=== PATIENT | female | born 1995 | race Caucasian/White ===

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

== ENCOUNTER → 2017-04-23 | Outpatient (CLI) | payer OTHER, BC | END | disposition home or self-care (01) | LOC: RADECHMAIN 12:44 | PROVIDERS: ATTEND Internal Medicine | DX: R00.0 Tachycardia, unspecified (principal); R55 Syncope and collapse | CPT/HCPCS: 93270; 93271 ==

== ENCOUNTER 2017-04-24 17:08 | Emergency (ER) | payer OTHER, BC ==
[2017-04-24] MEDS ORDERED: DICYCLOMINE 10 MG/ML 2 ML AMP IM STA (18:20)
[2017-04-24] MEDS ORDERED: SODIUM CHLORIDE 0.9% 1,000 ML IV STA (18:20)
[2017-04-24] MEDS ORDERED: ONDANSETRON 4 MG/2 ML VIAL IVP STA (18:20)
[2017-04-24] MEDS ORDERED: FAMOTIDINE 20 MG/2 ML VIAL IV STA (18:21)
--- NOTE | 2017-04-24 18:23 | ED ---
Nausea/Vomiting/Diarrhea HPI - General Chief complaint: Nausea/Vomiting/Diarrhea Stated complaint: generalized sickness Time Seen by Provider: 04/24/17 18:11 Source: patient, RN notes reviewed Mode of arrival: ambulatory Limitations: no limitations - History of Present Illness Initial comments: 22-year-old female presents to the emergency department with a chief complaint of nausea vomiting and diarrhea. Patient states that the last 2-3 days. Patient states she's had multiple episodes of vomiting and diarrhea. Patient states she'll get a crampy pain in her abdomen prior to the diarrhea. Patient states that this time she has no pain. Patient denies any fever or chills with this. Patient denies any surgical history. Patient states that it just seems to be consistent and is not worsening at this time but due to the continued symptoms she was concerned. Patient denies any recent fever, chills, shortness of breath, chest pain, back pain, abdominal pain, nausea vomiting, numbness or tingling, dysuria or hematuria, constipation or diarrhea, headaches or visual changes, or any other current symptoms. - Related Data Home Medications Medication Instructions Recorded Confirmed FLUoxetine HCL [PROzac] 10 mg PO HS 11/14/15 04/24/17 cloNIDine HCL [Catapres] 0.2 mg PO HS 11/14/15 04/24/17 Tri-Estarylla 1 tab PO HS 12/02/16 04/24/17 Multivitamins, Thera [Multivitamin 1 tab PO DAILY 04/24/17 04/24/17 (formulary)] Previous Rx's Medication Instructions Recorded Dicyclomine [Bentyl] 10 mg PO TID #20 capsule 04/24/17 Ondansetron Odt [Zofran ODT] 4 mg PO Q8HR PRN #20 tab 04/24/17 Allergies Allergy/AdvReac Type Severity Reaction Status Date / Time azithromycin [From Zithromax] Allergy Rash/Hives Verified 04/24/17 19:01 Review of Systems ROS Statement: Those systems with pertinent positive or pertinent negative responses have been documented in the HPI. ROS Other: All systems not noted in ROS Statement are negative. Past Medical History Additional Past Medical History / Comment(s): migraines, bulemia History of Any Multi-Drug Resistant Organisms: None Reported Past Surgical History: Ear Surgery Additional Past Surgical History / Comment(s): Ganglion impar block Past Psychological History: Anxiety, Depression Smoking Status: Current every day smoker Past Alcohol Use History: None Reported Past Drug Use History: None Reported General Exam - General Exam Comments Initial Comments: General: The patient is awake and alert, in no distress, and does not appear acutely ill. Eye: Pupils are equal, round and reactive to light, extra-ocular movements are intact; there is normal conjunctiva bilaterally. No signs of icterus. Ears, nose, mouth and throat: There are moist mucous membranes and no oral lesions. Neck: The neck is supple, there is no tenderness. Cardiovascular: There is a regular rate and rhythm. No murmur, rub or gallop is appreciated. Respiratory: Lungs are clear to auscultation, respirations are non-labored, breath sounds are equal. No wheezes, stridor, rales, or rhonchi. Gastrointestinal: Soft, non-distended, non-tender abdomen without masses or organomegaly noted. There is no rebound or guarding present. No CVA tenderness. Bowel sounds are unremarkable. Back: There is no tenderness to palpation in the midline. There is no obvious deformity. No rashes noted. Musculoskeletal: Normal ROM, no tenderness, There is no pedal edema. There is no calf tenderness or swelling. Sensation intact. Pulses equal bilaterally 2+. Neurological: CN II-XII intact, There are no obvious motor or sensory deficits. Coordination appears grossly intact. Speech is normal. Skin: Skin is warm and dry and no rashes or lesions are noted. Psychiatric: Cooperative, appropriate mood & affect, normal judgment. Limitations: no limitations Course Vital Signs 04/24/17 17:26 Temperature 98.1 F Pulse Rate 86 Respiratory 20 Rate Blood Pressure 111/68 O2 Sat by Pulse 98 Oximetry Medical Decision Making - Medical Decision Making 22-year-old female presents emergency Department with a chief complaint of nausea vomiting and diarrhea. This was reviewed as well as x-ray. At this time patient's abdomen continues to be soft and nontender. She has had no pain here. When receiving the IV the patient did vasovagal in the room this was witnessed she did here was going on she just was out she came to she was CONFUSED. AT THIS TIME WE DID DISCUSS OTHER ETIOLOGIES FOR THIS. We did discuss when to return the emergency department. We did discuss appropriate follow-up and all questions. Patient family stated they understood and they're in agreement with plan. They will be discharged. - Lab Data Result diagrams: 04/24/17 19:25 04/24/17 19:25 Lab Results 04/24/17 04/24/17 04/24/17 Range/Units 19:25 19:25 19:25 WBC 6.2 (4.0-11.0) k/uL RBC 4.76 (3.80-5.40) m/uL Hgb 13.8 (11.4-16.0) gm/dL Hct 40.3 (34.0-46.0) % MCV 84.7 (80.0-100.0) fL MCH 28.9 (25.0-35.0) pg MCHC 34.2 (31.0-37.0) g/dL RDW 13.5 (11.5-15.5) % Plt Count 345 (150-450) k/uL Neutrophils % 50 % Lymphocytes % 36 % Monocytes % 7 % Eosinophils % 4 % Basophils % 1 % Neutrophils # 3.1 (1.3-7.7) k/uL Lymphocytes # 2.2 (1.0-4.8) k/uL Monocytes # 0.5 (0-1.0) k/uL Eosinophils # 0.2 (0-0.7) k/uL Basophils # 0.1 (0-0.2) k/uL Sodium 142 (137-145) mmol/L Potassium 4.0 (3.5-5.1) mmol/L Chloride 105 (98-107) mmol/L Carbon Dioxide 27 (22-30) mmol/L Anion Gap 10 mmol/L BUN 10 (7-17) mg/dL Creatinine 0.60 (0.52-1.04) mg/dL Est GFR (MDRD) Af Amer >60 (>60 ml/min/1.73 sqM) Est GFR (MDRD) Non-Af >60 (>60 ml/min/1.73 sqM) Glucose 84 (74-99) mg/dL Calcium 9.9 (8.4-10.2) mg/dL Total Bilirubin 0.2 (0.2-1.3) mg/dL AST 23 (14-36) U/L ALT 32 (9-52) U/L Alkaline Phosphatase 96 (38-126) U/L Total Protein 7.2 (6.3-8.2) g/dL Albumin 4.3 (3.5-5.0) g/dL Amylase 78 (30-110) U/L Lipase 145 (23-300) U/L Urine Color Urine Appearance (Clear) Urine pH (5.0-8.0) Ur Specific [employer] (1.001-1.035) Urine Protein (Negative) Urine Glucose (UA) (Negative) Urine Ketones (Negative) Urine Blood (Negative) Urine Nitrite (Negative) Urine Bilirubin (Negative) Urine Urobilinogen (<2.0) mg/dL Ur Leukocyte Esterase (Negative) Urine RBC (0-5) /hpf Urine WBC (0-5) /hpf Ur Squamous Epith Cells (0-4) /hpf Amorphous Sediment (None) /hpf Urine Mucus (None) /hpf Urine HCG, Qual Not Detected (Not Detectd) 04/24/17 Range/Units 19:25 WBC (4.0-11.0) k/uL RBC (3.80-5.40) m/uL Hgb (11.4-16.0) gm/dL Hct (34.0-46.0) % MCV (80.0-100.0) fL MCH (25.0-35.0) pg MCHC (31.0-37.0) g/dL RDW (11.5-15.5) % Plt Count (150-450) k/uL Neutrophils % % Lymphocytes % % Monocytes % % Eosinophils % % Basophils % % Neutrophils # (1.3-7.7) k/uL Lymphocytes # (1.0-4.8) k/uL Monocytes # (0-1.0) k/uL Eosinophils # (0-0.7) k/uL Basophils # (0-0.2) k/uL Sodium (137-145) mmol/L Potassium (3.5-5.1) mmol/L Chloride (98-107) mmol/L Carbon Dioxide (22-30) mmol/L Anion Gap mmol/L BUN (7-17) mg/dL Creatinine (0.52-1.04) mg/dL Est GFR (MDRD) Af Amer (>60 ml/min/1.73 sqM) Est GFR (MDRD) Non-Af (>60 ml/min/1.73 sqM) Glucose (74-99) mg/dL Calcium (8.4-10.2) mg/dL Total Bilirubin (0.2-1.3) mg/dL AST (14-36) U/L ALT (9-52) U/L Alkaline Phosphatase (38-126) U/L Total Protein (6.3-8.2) g/dL Albumin (3.5-5.0) g/dL Amylase (30-110) U/L Lipase (23-300) U/L Urine Color Yellow Urine Appearance Cloudy H (Clear) Urine pH 7.5 (5.0-8.0) Ur Specific [employer] 1.016 (1.001-1.035) Urine Protein Trace H (Negative) Urine Glucose (UA) Negative (Negative) Urine Ketones Negative (Negative) Urine Blood Negative (Negative) Urine Nitrite Negative (Negative) Urine Bilirubin Negative (Negative) Urine Urobilinogen <2.0 (<2.0) mg/dL Ur Leukocyte Esterase Trace H (Negative) Urine RBC <1 (0-5) /hpf Urine WBC 6 H (0-5) /hpf Ur Squamous Epith Cells 29 H (0-4) /hpf Amorphous Sediment Few H (None) /hpf Urine Mucus Rare H (None) /hpf Urine HCG, Qual (Not Detectd) - Radiology Data Radiology results: report reviewed, image reviewed Disposition Clinical Impression: Nausea & vomiting, Diarrhea Disposition: HOME SELF-CARE Condition: Stable Instructions: Acute Nausea and Vomiting (ED) Additional Instructions: Please use medication as discussed. Please follow up with family doctor if symptoms have not improved over the next two days. Please return to the emergency room if your symptoms increase or worsen or for any other concerns. Prescriptions: Dicyclomine [Bentyl] 10 mg PO TID #20 capsule Ondansetron Odt [Zofran ODT] 4 mg PO Q8HR PRN #20 tab PRN Reason: Nausea Referrals: Eren Hernandez MD [Primary Care Provider] - 1-2 days Time of Disposition: 20:29
[2017-04-24 19:40] LABS: Basophils # (A) 0.1 k/uL (0-0.2); Basophils % (A) 1 %; CH 27.4; CHCM 32.5; Eosinophils # (A) 0.2 k/uL (0-0.7); Eosinophils % (A) 4 %; HCT 40.3 % (34.0-46.0); HDW 2.36; HGB 13.8 gm/dL (11.4-16.0); Luc # (Auto) 0.14; Luc % (Auto) 2; Lymphocytes # (A) 2.2 k/uL (1.0-4.8); Lymphocytes % (A) 36 %; MCH 28.9 pg (25.0-35.0); MCHC 34.2 g/dL (31.0-37.0); MCV 84.7 fL (80.0-100.0); Mean Platelet Volume 6.9; Monocytes # (A) 0.5 k/uL (0-1.0); Monocytes % (A) 7 %; Neutrophils # (A) 3.1 k/uL (1.3-7.7); Neutrophils % (A) 50 %; RBC 4.76 m/uL (3.80-5.40); RDW 13.5 % (11.5-15.5); WBC 6.2 k/uL (4.0-11.0); WBC (Perox) 6.43
[2017-04-24 19:48] LABS: Amorphous Sediment,Urine Few /hpf; Appearance,Urine Cloudy (Clear); Bilirubin,Urine Negative (Negative); Glucose,Urine (UA) Negative (Negative); Ketones,Urine Negative (Negative); Leukocyte Esterase,Urine Trace (Negative); Mucus,Urine Rare /hpf; Nitrite,Urine Negative (Negative); PH, Urine 7.5 (5.0-8.0); Particle Count 8545; Protein,Urine Trace (Negative); RBC,Urine <1 /hpf (0-5); Specific Gravity,Urine 1.016 (1.001-1.035); Squamous Epithelial Cell,Urine 29 /hpf (0-4); UA Billing (MACRO vs. MICRO) MICRO; Urobilinogen,Urine <2.0 mg/dL (<2.0); WBC,Urine 6 /hpf (0-5)
[2017-04-24] MEDS ORDERED: DICYCLOMINE 20 MG TAB PO STA (19:55)
[2017-04-24 19:56] LABS: ALT 32 U/L (9-52); AST 23 U/L (14-36); Alkaline Phosphatase 96 U/L (38-126); Amylase 78 U/L (30-110); Anion Gap 10 mmol/L; Blood Urea Nitrogen 10 mg/dL (7-17); Calcium 9.9 mg/dL (8.4-10.2); Carbon Dioxide 27 mmol/L (22-30); Chloride 105 mmol/L (98-107); Glucose 84 mg/dL (74-99); Non-African American GFR(MDRD) >60 (>60 ml/min/1.73 sqM); Sodium 142 mmol/L (137-145); Total Bilirubin 0.2 mg/dL (0.2-1.3); Total Protein 7.2 g/dL (6.3-8.2)
--- NOTE | 2017-04-24 20:25 | XR ---
EXAMINATION TYPE: XR abdomen 2V DATE OF EXAM: 04/24/2017 CLINICAL HISTORY: Pain and vomiting TECHNIQUE: Supine, upright, and left side down lateral decubitus views of the abdomen are obtained. COMPARISON: None. FINDINGS: Scattered gas is seen in non-distended small bowel loops. Gas and fecal material is seen in non-distended colon. There is no visceromegaly, pneumoperitoneum, or abnormal calcification appr eciated. The visualized lung bases and pleural spaces are negative. IMPRESSION: No acute process.
[2017-04-24 20:32] VITALS: RESP 18
[2017-04-24 21:05] VITALS: BP 109/60; PULSE 78; TEMP 97.8
== END 2017-04-24 20:45 | disposition home or self-care (01) ==
LOC: EC 17:08
DX: R11.2 Nausea with vomiting, unspecified (principal); R19.7 Diarrhea, unspecified; R10.9 Unspecified abdominal pain; F41.9 Anxiety disorder, unspecified; F32.9 Major depressive disorder, single episode, unspecified; F17.200 Nicotine dependence, unspecified, uncomplicated; Z53.20 Procedure and treatment not carried out because of patient's decision for unspecified reasons; Z79.899 Other long term (current) drug therapy; Z79.3 Long term (current) use of hormonal contraceptives; Z88.1 Allergy status to other antibiotic agents
CPT/HCPCS: 36415; 80053; 82150; 83690; 85025; 81001; 81025; 74020; 99284; 96374; 96375; 96361; J2405

== ENCOUNTER → 2017-05-21 | Outpatient (CLI) | payer OTHER, BC ==
[2017-05-21 11:46] LABS: Blood Urea Nitrogen 12 mg/dL (7-17); Non-African American GFR(MDRD) >60 (>60 ml/min/1.73 sqM)
== END | disposition home or self-care (01) ==
LOC: LABWHC1 10:42
PROVIDERS: ATTEND Psychiatry & Neurology Neurology
DX: R55 Syncope and collapse (principal)
CPT/HCPCS: 36415; 82565; 84520

== ENCOUNTER → 2017-05-23 | Outpatient (CLI) | payer OTHER, BC ==
--- NOTE | 2017-05-23 12:29 | MR ---
EXAMINATION TYPE: MR brain wo/w con DATE OF EXAM: 05/23/2017 COMPARISON: Prior MR brain 08/08/2015 HISTORY: Brain tumor / Neurofibromatosis, passing out episodes TECHNIQUE: Multiplanar, multisequence images of the brain and brainstem is performed without and with IV contras t, utilizing 12 mL intravenous MultiHance . FINDINGS: Diffusion weighted images demonstrate no evidence of a recent infarct or other diffusion ab normality. There is no extra-axial fluid collection or significant white matter signal abnormality. The ventricular system and cisternal spaces are normal in size and appearance. The brain volume is age appropriate. Midline structures demonstrate normal morphology. The craniocervical junction appears within normal limits. Post contrast images demonstrate no abnormal enhancement. The dural venous sinuses appear pa tent. The visualized sinuses are markable for some mild mucosal thickening in the maxillary sinuses. The globes are intact. IMPRESSION: Normal pre and postcontrast MRI brain. Mild sinus disease.
== END | disposition home or self-care (01) ==
LOC: RADMRIMAIN 09:55
PROVIDERS: ATTEND Psychiatry & Neurology Neurology
DX: D49.6 Neoplasm of unspecified behavior of brain (principal); Q85.00 Neurofibromatosis, unspecified
CPT/HCPCS: 70553; A9577

== ENCOUNTER 2018-11-19 12:12 | Emergency (ER) | payer OTHER, BC ==
[2018-11-19 12:38] VITALS: RESP 18; TEMP 98.4
[2018-11-19] MEDS ORDERED: SODIUM CHLORIDE 0.9% 1,000 ML IV STA ×2 (13:15)
[2018-11-19 13:44] LABS: Glucose,Whole Blood 98 mg/dL (75-99)
--- NOTE | 2018-11-19 13:46 | ED ---
Dizziness HPI - General Chief Complaint: Syncope Stated Complaint: syncope/hit head Time Seen by Provider: 11/19/18 12:52 Source: patient, RN notes reviewed, old records reviewed Mode of arrival: ambulatory Limitations: no limitations - History of Present Illness Initial Comments: Chantelle is a 23-year-old female who presents today with a syncopal episode. 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 Patient states that she did the injection and afterwards she had complaints of dizziness. She then fell while she passed out and hit her head on the floor. She did have a loss of consciousness for one to 2 minutes. She also complains of hitting her left elbow. She's had a history of syncopal episodes frequently in the past 2 years. She's been evaluated by cardiology and neurology with no significant answers. Patient states she's also worn a Holter monitor. She denies any chest pain or shortness of breath. She does complain of a minor headache as well as left elbow pain at this time. She does have full range of motion of all extremities. She denies any back pain or abdominal pain. - Related Data Home Medications Medication Instructions Recorded Confirmed FLUoxetine HCL [PROzac] 10 mg PO HS 11/14/15 11/19/18 cloNIDine HCL [Catapres] 0.2 mg PO HS 11/14/15 11/19/18 Tri-[place] 1 tab PO HS 12/02/16 11/19/18 Allergies Allergy/AdvReac Type Severity Reaction Status Date / Time azithromycin [From Zithromax] Allergy Rash/Hives Verified 11/19/18 13:08 Review of Systems ROS Statement: Those systems with pertinent positive or pertinent negative responses have been documented in the HPI. ROS Other: All systems not noted in ROS Statement are negative. Past Medical History Additional Past Medical History / Comment(s): migraines, bulemia History of Any Multi-Drug Resistant Organisms: None Reported Past Surgical History: Ear Surgery Additional Past Surgical History / Comment(s): Ganglion impar block. Past Psychological History: Anxiety, Depression Smoking Status: Current every day smoker Past Alcohol Use History: None Reported Past Drug Use History: None Reported General Exam - General Exam Comments Initial Comments: This is a 23-year-old female. Alert and oriented. Patient appears in no significant distress. Limitations: no limitations General appearance: alert, in no apparent distress Head exam: Present: atraumatic Eye exam: Present: normal appearance, PERRL, EOMI. Absent: scleral icterus, conjunctival injection, periorbital swelling ENT exam: Present: normal exam, mucous membranes moist Neck exam: Present: normal inspection. Absent: tenderness, meningismus, lymphadenopathy Respiratory exam: Present: normal lung sounds bilaterally. Absent: respiratory distress, wheezes, rales, rhonchi, stridor Cardiovascular Exam: Present: regular rate, normal rhythm, normal heart sounds. Absent: systolic murmur, diastolic murmur, rubs, gallop, clicks GI/Abdominal exam: Present: soft, normal bowel sounds. Absent: distended, tenderness, guarding, rebound, rigid Extremities exam: Present: normal inspection Back exam: Present: normal inspection Neurological exam: Present: alert, oriented X3, CN II-XII intact Psychiatric exam: Present: normal affect, normal mood Skin exam: Present: warm, dry, intact, normal color. Absent: rash Course Vital Signs 11/19/18 11/19/18 12:34 16:15 Temperature 98.4 F Pulse Rate 77 82 Respiratory 18 18 Rate Blood Pressure 109/71 109/58 O2 Sat by Pulse 98 100 Oximetry EKG Findings - EKG Comments: EKG Findings:: EKG performed at 1334 shows normal sinus rhythm sinus rhythm and normal EKG. Ventricular rate 64 bpm. VA interval is 1:30 milliseconds. QRS duration 82 ms. QT QTc is 418/[address] elevation or T-wave inversion. Medical Decision Making - Medical Decision Making 23 year old presents after vasovagal episode of syncope. She did hit her head with LOC. Patient has no neurological deficits at htis time. Patient denies pain besides minor headache and elbow pain. EKG, labs and all imaging studies are unremakrable. She feels better after IV fluids and labs obtained. She is advised to follow up with PCP and return parameters discussed. - Lab Data Result diagrams: 11/19/18 13:44 11/19/18 13:44 Lab Results 11/19/18 11/19/18 11/19/18 Range/Units 13:43 13:44 13:44 WBC 8.7 (3.8-10.6) k/uL RBC 4.08 (3.80-5.40) m/uL Hgb 11.0 L (11.4-16.0) gm/dL Hct 35.0 (34.0-46.0) % MCV 85.7 (80.0-100.0) fL MCH 26.9 (25.0-35.0) pg MCHC 31.4 (31.0-37.0) g/dL RDW 14.1 (11.5-15.5) % Plt Count 305 (150-450) k/uL Neutrophils % 66 % Lymphocytes % 22 % Monocytes % 8 % Eosinophils % 3 % Basophils % 0 % Neutrophils # 5.7 (1.3-7.7) k/uL Lymphocytes # 1.9 (1.0-4.8) k/uL Monocytes # 0.7 (0-1.0) k/uL Eosinophils # 0.2 (0-0.7) k/uL Basophils # 0.0 (0-0.2) k/uL PT (9.0-12.0) sec INR (<1.2) APTT (22.0-30.0) sec Sodium 139 (137-145) mmol/L Potassium 4.7 (3.5-5.1) mmol/L Chloride 109 H (98-107) mmol/L Carbon Dioxide 22 (22-30) mmol/L Anion Gap 8 mmol/L BUN 9 (7-17) mg/dL Creatinine 0.58 (0.52-1.04) mg/dL Est GFR (CKD-EPI)AfAm >90 (>60 ml/min/1.73 sqM) Est GFR (CKD-EPI)NonAf >90 (>60 ml/min/1.73 sqM) Glucose 90 (74-99) mg/dL POC Glucose (mg/dL) 98 (75-99) mg/dL POC Glu Teen Counselor CARMEN Shadia Damon Calcium 9.6 (8.4-10.2) mg/dL Total Bilirubin 0.3 (0.2-1.3) mg/dL AST 18 (14-36) U/L ALT 20 (9-52) U/L Alkaline Phosphatase 76 (38-126) U/L Troponin I (0.000-0.034) ng/mL Total Protein 6.5 (6.3-8.2) g/dL Albumin 3.7 (3.5-5.0) g/dL Urine Color Urine Appearance (Clear) Urine pH (5.0-8.0) Ur Specific [place] (1.001-1.035) Urine Protein (Negative) Urine Glucose (UA) (Negative) Urine Ketones (Negative) Urine Blood (Negative) Urine Nitrite (Negative) Urine Bilirubin (Negative) Urine Urobilinogen (<2.0) mg/dL Ur Leukocyte Esterase (Negative) Urine RBC (0-5) /hpf Urine WBC (0-5) /hpf Ur Squamous Epith Cells (0-4) /hpf Urine Mucus (None) /hpf Urine HCG, Qual (Not Detectd) 11/19/18 11/19/18 11/19/18 Range/Units 13:44 13:44 13:44 WBC (3.8-10.6) k/uL RBC (3.80-5.40) m/uL Hgb (11.4-16.0) gm/dL Hct (34.0-46.0) % MCV (80.0-100.0) fL MCH (25.0-35.0) pg MCHC (31.0-37.0) g/dL RDW (11.5-15.5) % Plt Count (150-450) k/uL Neutrophils % % Lymphocytes % % Monocytes % % Eosinophils % % Basophils % % Neutrophils # (1.3-7.7) k/uL Lymphocytes # (1.0-4.8) k/uL Monocytes # (0-1.0) k/uL Eosinophils # (0-0.7) k/uL Basophils # (0-0.2) k/uL PT 9.9 (9.0-12.0) sec INR 0.9 (<1.2) APTT 23.5 (22.0-30.0) sec Sodium (137-145) mmol/L Potassium (3.5-5.1) mmol/L Chloride (98-107) mmol/L Carbon Dioxide (22-30) mmol/L Anion Gap mmol/L BUN (7-17) mg/dL Creatinine (0.52-1.04) mg/dL Est GFR (CKD-EPI)AfAm (>60 ml/min/1.73 sqM) Est GFR (CKD-EPI)NonAf (>60 ml/min/1.73 sqM) Glucose (74-99) mg/dL POC Glucose (mg/dL) (75-99) mg/dL POC Glu Teen Counselor ID Calcium (8.4-10.2) mg/dL Total Bilirubin (0.2-1.3) mg/dL AST (14-36) U/L ALT (9-52) U/L Alkaline Phosphatase (38-126) U/L Troponin I <0.012 (0.000-0.034) ng/mL Total Protein (6.3-8.2) g/dL Albumin (3.5-5.0) g/dL Urine Color Yellow Urine Appearance Cloudy H (Clear) Urine pH 5.5 (5.0-8.0) Ur Specific [place] 1.023 (1.001-1.035) Urine Protein 1+ H (Negative) Urine Glucose (UA) Negative (Negative) Urine Ketones Negative (Negative) Urine Blood Negative (Negative) Urine Nitrite Negative (Negative) Urine Bilirubin Negative (Negative) Urine Urobilinogen <2.0 (<2.0) mg/dL Ur Leukocyte Esterase Large H (Negative) Urine RBC 2 (0-5) /hpf Urine WBC 26 H (0-5) /hpf Ur Squamous Epith Cells 15 H (0-4) /hpf Urine Mucus Many H (None) /hpf Urine HCG, Qual (Not Detectd) 11/19/18 Range/Units 13:44 WBC (3.8-10.6) k/uL RBC (3.80-5.40) m/uL Hgb (11.4-16.0) gm/dL Hct (34.0-46.0) % MCV (80.0-100.0) fL MCH (25.0-35.0) pg MCHC (31.0-37.0) g/dL RDW (11.5-15.5) % Plt Count (150-450) k/uL Neutrophils % % Lymphocytes % % Monocytes % % Eosinophils % % Basophils % % Neutrophils # (1.3-7.7) k/uL Lymphocytes # (1.0-4.8) k/uL Monocytes # (0-1.0) k/uL Eosinophils # (0-0.7) k/uL Basophils # (0-0.2) k/uL PT (9.0-12.0) sec INR (<1.2) APTT (22.0-30.0) sec Sodium (137-145) mmol/L Potassium (3.5-5.1) mmol/L Chloride (98-107) mmol/L Carbon Dioxide (22-30) mmol/L Anion Gap mmol/L BUN (7-17) mg/dL Creatinine (0.52-1.04) mg/dL Est GFR (CKD-EPI)AfAm (>60 ml/min/1.73 sqM) Est GFR (CKD-EPI)NonAf (>60 ml/min/1.73 sqM) Glucose (74-99) mg/dL POC Glucose (mg/dL) (75-99) mg/dL POC Glu Teen Counselor ID Calcium (8.4-10.2) mg/dL Total Bilirubin (0.2-1.3) mg/dL AST (14-36) U/L ALT (9-52) U/L Alkaline Phosphatase (38-126) U/L Troponin I (0.000-0.034) ng/mL Total Protein (6.3-8.2) g/dL Albumin (3.5-5.0) g/dL Urine Color Urine Appearance (Clear) Urine pH (5.0-8.0) Ur Specific [place] (1.001-1.035) Urine Protein (Negative) Urine Glucose (UA) (Negative) Urine Ketones (Negative) Urine Blood (Negative) Urine Nitrite (Negative) Urine Bilirubin (Negative) Urine Urobilinogen (<2.0) mg/dL Ur Leukocyte Esterase (Negative) Urine RBC (0-5) /hpf Urine WBC (0-5) /hpf Ur Squamous Epith Cells (0-4) /hpf Urine Mucus (None) /hpf Urine HCG, Qual Not Detected (Not Detectd) - Radiology Data Radiology results: report reviewed CT brain is negative for acute process. Left elbow xray is negative. CXR is negative for acute process. Disposition Clinical Impression: Vasovagal episode Disposition: HOME SELF-CARE Condition: Good Instructions (If sedation given, give patient instructions): Syncope (ED) Additional Instructions: Patient is to follow up with her primary care physician. Return to the emergency department if any alarming signs or symptoms occur. Is patient prescribed a controlled substance at d/c from ED?: No Referrals: Eren Hernandez MD [Primary Care Provider] - 1-2 days Time of Disposition: 15:56
[2018-11-19 14:53] LABS: Basophils % (A) 0 %; Eosinophils # (A) 0.2 k/uL (0-0.7); Eosinophils % (A) 3 %; Lymphocytes # (A) 1.9 k/uL (1.0-4.8); Lymphocytes % (A) 22 %; MCH 26.9 pg (25.0-35.0); MCHC 31.4 g/dL (31.0-37.0); MCV 85.7 fL (80.0-100.0); Mean Platelet Volume 8.1; Monocytes # (A) 0.7 k/uL (0-1.0); Monocytes % (A) 8 %; Neutrophils # (A) 5.7 k/uL (1.3-7.7); Neutrophils % (A) 66 %; Platelet Count 305 k/uL (150-450); RBC 4.08 m/uL (3.80-5.40); RDW 14.1 % (11.5-15.5); WBC 8.7 k/uL (3.8-10.6)
[2018-11-19 14:56] LABS: Appearance,Urine Cloudy (Clear); Bilirubin,Urine Negative (Negative); Blood,Urine Negative (Negative); Color,Urine Yellow; Glucose,Urine (UA) Negative (Negative); Ketones,Urine Negative (Negative); Leukocyte Esterase,Urine Large (Negative); Mucus,Urine Many /hpf; Nitrite,Urine Negative (Negative); PH, Urine 5.5 (5.0-8.0); Protein,Urine 1+ (Negative); RBC,Urine 2 /hpf (0-5); Specific Gravity,Urine 1.023 (1.001-1.035); Squamous Epithelial Cell,Urine 15 /hpf (0-4); Urobilinogen,Urine <2.0 mg/dL (<2.0); WBC,Urine 26 /hpf (0-5)
[2018-11-19 15:04] LABS: INR 0.9 (<1.2); Partial Thromboplastin Time 23.5 sec (22.0-30.0); Prothrombin Time 9.9 sec (9.0-12.0)
[2018-11-19 15:05] LABS: ALT 20 U/L (9-52); AST 18 U/L (14-36); Albumin 3.7 g/dL (3.5-5.0); Alkaline Phosphatase 76 U/L (38-126); Anion Gap 8 mmol/L; Blood Urea Nitrogen 9 mg/dL (7-17); Calcium 9.6 mg/dL (8.4-10.2); Carbon Dioxide 22 mmol/L (22-30); Chloride 109 mmol/L (98-107); Glucose 90 mg/dL (74-99); Potassium 4.7 mmol/L (3.5-5.1); Sodium 139 mmol/L (137-145); Total Bilirubin 0.3 mg/dL (0.2-1.3); Total Protein 6.5 g/dL (6.3-8.2)
--- NOTE | 2018-11-19 15:28 | CT ---
EXAMINATION TYPE: CT brain wo con DATE OF EXAM: 11/19/2018 COMPARISON: MR brain 05/23/2017 HISTORY: Syncopal episode with injury today CT DLP: 1093.4 mGycm. Automated Exposure Control for Dose Reduction was Utilized. Helical imaging th rough the brain TECHNIQUE: CT scan of the head is performed without contrast. FINDINGS: There is no acute intracranial hemorrhage, mass effect, or midline shift identified. The ventricles and sulci are within normal limits in size. The globes are intact and the visualized sin uses are clear. IMPRESSION: No acute intracranial hemorrhage, mass effect, or midline shift is seen.
--- NOTE | 2018-11-19 15:34 | XR ---
EXAMINATION TYPE: XR chest 2V DATE OF EXAM: 11/19/2018 COMPARISON: NONE TECHNIQUE: PA and lateral views submitted. HISTORY: Pain FINDINGS: The lungs are clear and there is no pneumothorax, pleural effusion, or focal pneumonia. IMPRESSION: 1. No acute process.
--- NOTE | 2018-11-19 15:36 | XR ---
EXAMINATION TYPE: XR elbow limited LT DATE OF EXAM: 11/19/2018 COMPARISON: NONE HISTORY: Pain FINDINGS: Two views of the elbow demonstrate no pathologic joint effusion. The osseous structures are intact. There is no acute fracture or dislocation. IMPRESSION: 1. No acute fracture or dislocation. If symptoms persist follow-up study in 7 to 10 days could be ob tained.
[2018-11-19 16:16] VITALS: BP 109/58; PULSE 82
== END 2018-11-19 16:16 | disposition home or self-care (01) ==
LOC: EC 12:12
DX: R55 Syncope and collapse (principal); R42 Dizziness and giddiness; R51 Headache; M25.522 Pain in left elbow; F32.9 Major depressive disorder, single episode, unspecified; F41.9 Anxiety disorder, unspecified; F17.200 Nicotine dependence, unspecified, uncomplicated; Z79.3 Long term (current) use of hormonal contraceptives; Z79.899 Other long term (current) drug therapy; Z88.1 Allergy status to other antibiotic agents
CPT/HCPCS: 36415; 70450; 71046; 80053; 81001; 81025; 84484; 85025; 85610; 85730; 93005; 96360; 96361; 99285

== ENCOUNTER 2019-01-28 09:54 | Emergency (ER) | payer OTHER, BC ==
[2019-01-28] MEDS ORDERED: SODIUM CHLORIDE 0.9% 1,000 ML IV STA (10:01)
[2019-01-28 10:10] VITALS: RESP 18; TEMP 98.1
--- NOTE | 2019-01-28 10:16 | ED ---
Syncope HPI - General Chief Complaint: Syncope Stated Complaint: SYNCOPE Time Seen by Provider: 01/28/19 09:55 - History of Present Illness Initial Comments: 23 year old female with past medical history of syncope presenting today for chief complaint of syncopal episode at school. Patient states around 9:00 she had a syncopal episode she states this morning she is feeling fatigued she did have a slight stomachache, she states she ate breakfast, she denied any significant events prior to the onset of syncope. Patient has chest pain dyspnea describes exertion. Patient states she has had multiple syncopal episodes over the course of the last 10 years of her life, with a las episode a month ago. She states she has had extensive workup including EEG, EKG, Holter monitor, MRI etc, however has not had a specific diagnosis for these syncopal episodes. Patient states she was worried about phlebotomy today. Patient states she woke up on the floor, bystander states patient fell from chair to the floor <4 ft and did hit head. Patient has small scratch to the right side of her forehead. No contusions or hematomas. Patient states she has a slight headache denies any nausea vomiting visual changes numbness tingling or loss sensation muscle weakness speech changes or any other complaints at this time. Denies this being worse headache of life, states that it is mild in nature, dull aching. Patient states she is fatigued. Remaining review of systems negative. Patient denies any recent fever, chills, shortness of breath, chest pain, back pain, nausea or vomiting, dysuria or hematuria, constipation or diarrhea,or any other complaints. - Related Data Home Medications Medication Instructions Recorded Confirmed FLUoxetine HCL [PROzac] 10 mg PO HS 11/14/15 01/28/19 cloNIDine HCL [Catapres] 0.2 mg PO HS 11/14/15 01/28/19 Tri-[place] 1 tab PO HS 01/28/19 01/28/19 Allergies Allergy/AdvReac Type Severity Reaction Status Date / Time azithromycin [From Zithromax] Allergy Rash/Hives Verified 01/28/19 10:09 Review of Systems ROS Statement: Those systems with pertinent positive or pertinent negative responses have been documented in the HPI. ROS Other: All systems not noted in ROS Statement are negative. Past Medical History Additional Past Medical History / Comment(s): migraines, bulemia History of Any Multi-Drug Resistant Organisms: None Reported Past Surgical History: Ear Surgery Additional Past Surgical History / Comment(s): Ganglion impar block. Past Psychological History: Anxiety, Depression Smoking Status: Current every day smoker Past Alcohol Use History: None Reported Past Drug Use History: None Reported General Exam - General Exam Comments Initial Comments: General: The patient is awake and alert, in no distress, and does not appear acutely ill. Eye: +3 mm pupils are equal, round and reactive to light, extra-ocular movements are intact. No nystagmus. There is normal conjunctiva bilaterally. No signs of icterus. Ears, nose, mouth and throat: There are moist mucous membranes and no oral lesions. Neck: The neck is supple, there is no tenderness or JVD. Cardiovascular: There is a regular rate and rhythm. No murmur, rub or gallop is appreciated. Respiratory: Lungs are clear to auscultation, respirations are non-labored, br eath sounds are equal. No wheezes, stridor, rales, or rhonchi. Gastrointestinal: Soft, non-distended, non-tender abdomen without masses or organomegaly noted. There is no rebound or guarding present. No CVA tenderness. Bowel sounds are unremarkable. Musculoskeletal: Normal ROM, no tenderness. Strength 5/5. Sensation intact. Radial pulses equal bilaterally 2+. Neurological: A&O x 3. CN II-XII intact, There are no obvious motor or sensory deficits. Coordination appears grossly intact. Speech is normal. Skin: Skin is warm and dry and no rashes. Small scratch right side of forehead, no contusion, hematoma of the scalp. No lower extremity edema Psychiatric: Cooperative, appropriate mood & affect, normal judgment. Course Vital Signs 01/28/19 01/28/19 10:04 11:50 Temperature 98.1 F Pulse Rate 74 80 Respiratory 18 18 Rate Blood Pressure 108/70 121/72 O2 Sat by Pulse 100 100 Oximetry EKG Findings - EKG Comments: EKG Findings:: A 12-lead EKG was performed and shows the following: Rate is 66bpm, and rhythm is normal sinus with sinus arrhythmia. There are normal QRS complexes and normal R-wave progression. ST segments have no elevation or depression, and CT segments appear normal. CT interval 146 ms, QRS ration 86 ms, QT/QTC 422/442 ms. Medical Decision Making - Medical Decision Making Appearing 23-year-old female significant past medical history for syncope. P kayli has had extensive outpatient workup for syncopal episodes. Patient states this is similar to her past episodes denies a symptoms prior to onset. She denies any significant headache dizziness or there is no focal neurological deficits on exam. Patient did have injury to the head however there is no contusions crepitus palpation of the scalp hematomas. No findings consistent with significant trauma. At this time given all was less than 4 feet, with no syncope get findings on examination for trauma that CT is not warranted at this time. She is agreeable to this care plan. Plain films of the cervical spine were obtained revealing no acute osseous injury. Patient denied any neck pain. EKG revealed no acute findings. Chest x-ray within normal limits. Troponin negative. Laboratories unremarkable. At this time feel patient is well- appearing is unclear the cause or etiology of syncopal episode at this time however given patient history of extensive workup and this being an ongoing chronic issue I feel patient is stable for discharge with further outpatient evaluation. Patient is currently seeking evaluation at the [facility]. Patient will follow up with physicians as scheduled. I discussed the case attempted by Dr. Shelley was agreeable patient's plan of care and discharge. Patient was provided IV fluids in the emergency department. I return parameters were discussed the patient who verbalized understanding and is comfortable with discharge at this time. - Lab Data Result diagrams: 01/28/19 10:20 01/28/19 10:20 Lab Results 01/28/19 01/28/19 01/28/19 Range/Units 10:20 10:20 10:20 WBC 8.5 (3.8-10.6) k/uL RBC 3.97 (3.80-5.40) m/uL Hgb 11.2 L (11.4-16.0) gm/dL Hct 34.1 (34.0-46.0) % MCV 85.9 (80.0-100.0) fL MCH 28.2 (25.0-35.0) pg MCHC 32.8 (31.0-37.0) g/dL RDW 14.1 (11.5-15.5) % Plt Count 287 (150-450) k/uL Neutrophils % 64 % Lymphocytes % 24 % Monocytes % 6 % Eosinophils % 5 % Basophils % 0 % Neutrophils # 5.4 (1.3-7.7) k/uL Lymphocytes # 2.0 (1.0-4.8) k/uL Monocytes # 0.5 (0-1.0) k/uL Eosinophils # 0.4 (0-0.7) k/uL Basophils # 0.0 (0-0.2) k/uL Hypochromasia Slight PT 10.7 (9.0-12.0) sec INR 1.0 (<1.2) APTT 22.4 (22.0-30.0) sec Sodium 138 (137-145) mmol/L Potassium 3.9 (3.5-5.1) mmol/L Chloride 108 H (98-107) mmol/L Carbon Dioxide 25 (22-30) mmol/L Anion Gap 5 mmol/L BUN 15 (7-17) mg/dL Creatinine 0.58 (0.52-1.04) mg/dL Est GFR (CKD-EPI)AfAm >90 (>60 ml/min/1.73 sqM) Est GFR (CKD-EPI)NonAf >90 (>60 ml/min/1.73 sqM) Glucose 99 (74-99) mg/dL Calcium 9.0 (8.4-10.2) mg/dL Total Bilirubin 0.6 (0.2-1.3) mg/dL AST 18 (14-36) U/L ALT 27 (9-52) U/L Alkaline Phosphatase 69 (38-126) U/L Troponin I (0.000-0.034) ng/mL Total Protein 6.3 (6.3-8.2) g/dL Albumin 3.7 (3.5-5.0) g/dL Urine Color Urine Appearance (Clear) Urine pH (5.0-8.0) Ur Specific [place] (1.001-1.035) Urine Protein (Negative) Urine Glucose (UA) (Negative) Urine Ketones (Negative) Urine Blood (Negative) Urine Nitrite (Negative) Urine Bilirubin (Negative) Urine Urobilinogen (<2.0) mg/dL Ur Leukocyte Esterase (Negative) Urine RBC (0-5) /hpf Urine WBC (0-5) /hpf Ur Squamous Epith Cells (0-4) /hpf Urine Mucus (None) /hpf Urine HCG, Qual (Not Detectd) 01/28/19 01/28/19 01/28/19 Range/Units 10:20 10:20 10:25 WBC (3.8-10.6) k/uL RBC (3.80-5.40) m/uL Hgb (11.4-16.0) gm/dL Hct (34.0-46.0) % MCV (80.0-100.0) fL MCH (25.0-35.0) pg MCHC (31.0-37.0) g/dL RDW (11.5-15.5) % Plt Count (150-450) k/uL Neutrophils % % Lymphocytes % % Monocytes % % Eosinophils % % Basophils % % Neutrophils # (1.3-7.7) k/uL Lymphocytes # (1.0-4.8) k/uL Monocytes # (0-1.0) k/uL Eosinophils # (0-0.7) k/uL Basophils # (0-0.2) k/uL Hypochromasia PT (9.0-12.0) sec INR (<1.2) APTT (22.0-30.0) sec Sodium (137-145) mmol/L Potassium (3.5-5.1) mmol/L Chloride (98-107) mmol/L Carbon Dioxide (22-30) mmol/L Anion Gap mmol/L BUN (7-17) mg/dL Creatinine (0.52-1.04) mg/dL Est GFR (CKD-EPI)AfAm (>60 ml/min/1.73 sqM) Est GFR (CKD-EPI)NonAf (>60 ml/min/1.73 sqM) Glucose (74-99) mg/dL Calcium (8.4-10.2) mg/dL Total Bilirubin (0.2-1.3) mg/dL AST (14-36) U/L ALT (9-52) U/L Alkaline Phosphatase (38-126) U/L Troponin I <0.012 (0.000-0.034) ng/mL Total Protein (6.3-8.2) g/dL Albumin (3.5-5.0) g/dL Urine Color Yellow Urine Appearance Cloudy H (Clear) Urine pH 8.0 (5.0-8.0) Ur Specific [place] 1.027 (1.001-1.035) Urine Protein 1+ H (Negative) Urine Glucose (UA) Negative (Negative) Urine Ketones Negative (Negative) Urine Blood Moderate H (Negative) Urine Nitrite Negative (Negative) Urine Bilirubin Negative (Negative) Urine Urobilinogen <2.0 (<2.0) mg/dL Ur Leukocyte Esterase Large H (Negative) Urine RBC 3 (0-5) /hpf Urine WBC 11 H (0-5) /hpf Ur Squamous Epith Cells 11 H (0-4) /hpf Urine Mucus Moderate H (None) /hpf Urine HCG, Qual Not Detected (Not Detectd) Disposition Clinical Impression: Syncope Disposition: HOME SELF-CARE Condition: Good Instructions (If sedation given, give patient instructions): Syncope (ED) Additional Instructions: Please use medication as discussed. Please follow-up with family doctor in the next 2 days. Please return to emergency room if the symptoms increase or worsen or for any other concerns. Is patient prescribed a controlled substance at d/c from ED?: No Referrals: Eren Hernandez MD [Primary Care Provider] - 1-2 days Time of Disposition: 11:10
[2019-01-28 10:44] LABS: Basophils % (A) 0 %; Eosinophils # (A) 0.4 k/uL (0-0.7); Eosinophils % (A) 5 %; HCT 34.1 % (34.0-46.0); HGB 11.2 gm/dL (11.4-16.0); Hypochromasia Slight; Lymphocytes % (A) 24 %; MCH 28.2 pg (25.0-35.0); MCHC 32.8 g/dL (31.0-37.0); MCV 85.9 fL (80.0-100.0); Mean Platelet Volume 7.6; Monocytes # (A) 0.5 k/uL (0-1.0); Monocytes % (A) 6 %; Neutrophils # (A) 5.4 k/uL (1.3-7.7); Neutrophils % (A) 64 %; Platelet Count 287 k/uL (150-450); RBC 3.97 m/uL (3.80-5.40); RDW 14.1 % (11.5-15.5); WBC 8.5 k/uL (3.8-10.6)
[2019-01-28 10:53] LABS: Appearance,Urine Cloudy (Clear); Bilirubin,Urine Negative (Negative); Blood,Urine Moderate (Negative); Color,Urine Yellow; Glucose,Urine (UA) Negative (Negative); Ketones,Urine Negative (Negative); Leukocyte Esterase,Urine Large (Negative); Mucus,Urine Moderate /hpf; Nitrite,Urine Negative (Negative); Partial Thromboplastin Time 22.4 sec (22.0-30.0); Protein,Urine 1+ (Negative); Prothrombin Time 10.7 sec (9.0-12.0); RBC,Urine 3 /hpf (0-5); Specific Gravity,Urine 1.027 (1.001-1.035); Squamous Epithelial Cell,Urine 11 /hpf (0-4); Urobilinogen,Urine <2.0 mg/dL (<2.0); WBC,Urine 11 /hpf (0-5)
[2019-01-28 10:54] LABS: ALT 27 U/L (9-52); AST 18 U/L (14-36); Albumin 3.7 g/dL (3.5-5.0); Alkaline Phosphatase 69 U/L (38-126); Anion Gap 5 mmol/L; Blood Urea Nitrogen 15 mg/dL (7-17); Carbon Dioxide 25 mmol/L (22-30); Chloride 108 mmol/L (98-107); Glucose 99 mg/dL (74-99); Potassium 3.9 mmol/L (3.5-5.1); Sodium 138 mmol/L (137-145); Total Bilirubin 0.6 mg/dL (0.2-1.3); Total Protein 6.3 g/dL (6.3-8.2)
--- NOTE | 2019-01-28 10:54 | XR ---
EXAMINATION TYPE: XR cervical spine comp DATE OF EXAM: 01/28/2019 COMPARISON: NONE HISTORY: Neck pain TECHNIQUE: Four views are submitted. FINDINGS: The odontoid is intact. There are no compression deformities. The prevertebral soft tissue structur es are within normal limits. IMPRESSION: 1. No acute process.
--- NOTE | 2019-01-28 10:55 | XR ---
EXAMINATION TYPE: XR chest 2V DATE OF EXAM: 01/28/2019 COMPARISON: 11/19/2018 TECHNIQUE: PA and lateral views submitted. HISTORY: Syncope FINDINGS: The lungs are clear and there is no pneumothorax, pleural effusion, or focal pneumonia. IMPRESSION: 1. No acute process.
[2019-01-28 11:51] VITALS: BP 121/72; PULSE 80
== END 2019-01-28 11:51 | disposition home or self-care (01) ==
LOC: EC 09:54
DX: R55 Syncope and collapse (principal); S00.81XA Abrasion of other part of head, initial encounter; R53.83 Other fatigue; R10.9 Unspecified abdominal pain; R07.9 Chest pain, unspecified; R06.00 Dyspnea, unspecified; F32.9 Major depressive disorder, single episode, unspecified; F41.9 Anxiety disorder, unspecified; F17.200 Nicotine dependence, unspecified, uncomplicated; Z88.1 Allergy status to other antibiotic agents; Z79.3 Long term (current) use of hormonal contraceptives; Z79.899 Other long term (current) drug therapy; Z86.69 Personal history of other diseases of the nervous system and sense organs; W07.XXXA Fall from chair, initial encounter; Y93.89 Activity, other specified
CPT/HCPCS: 36415; 71046; 72050; 80053; 81001; 81025; 84484; 85025; 85610; 85730; 93005; 96360; 99284

== ENCOUNTER 2021-05-02 11:58 | Emergency (ER) | payer BC, OTHER ==
[2021-05-02 12:05] VITALS: TEMP 97.8
[2021-05-02 12:16] VITALS: RESP 16
[2021-05-02] MEDS ORDERED: SODIUM CHLORIDE 0.9% 500 ML 500 ML IV ONE (12:34)
[2021-05-02] MEDS ORDERED: KETOROLAC 15 MG/ML 1 ML VIAL IVP STA (12:37)
[2021-05-02] MEDS ORDERED: SODIUM CHLORIDE 0.9% 1,000 ML IV STA (12:41)
--- NOTE | 2021-05-02 12:42 | ED ---
General Adult HPI - General Chief complaint: Abdominal Pain Stated complaint: abd pain Time Seen by Provider: 05/02/21 12:13 Source: patient, family, EMS, RN notes reviewed Mode of arrival: EMS Limitations: no limitations - History of Present Illness Initial comments: Patient is a pleasant 26-year-old female presenting to the emergency Department with complaints of pelvic pain. Onset of symptoms was this morning. Patient did start her menses this morning. Patient does have chronic severe pelvic pain associated with her menses. Patient states symptoms were worse than normal today. Patient is having some vaginal bleeding consistent with her normal menses. Discomfort is more severe than normal. Patient had to crawl into the door and had a couple episodes of borderline passing out. No nausea vomiting. No constipation or diarrhea. No vaginal discharge. Discomfort is in the pelvic region. - Related Data Home Medications Medication Instructions Recorded Confirmed cloNIDine HCL [Catapres] 0.2 mg PO HS 11/14/15 05/02/21 FLUoxetine HCL [PROzac] 20 mg PO DAILY 05/02/21 05/02/21 Multivitamins, Thera [Multivitamin 1 tab PO DAILY 05/02/21 05/02/21 (formulary)] Allergies Allergy/AdvReac Type Severity Reaction Status Date / Time azithromycin [From Zithromax] Allergy Rash/Hives Verified 05/02/21 13:40 Review of Systems ROS Statement: Those systems with pertinent positive or pertinent negative responses have been documented in the HPI. ROS Other: All systems not noted in ROS Statement are negative. Constitutional: Denies: fever Eyes: Denies: eye pain ENT: Denies: ear pain Respiratory: Denies: cough Cardiovascular: Denies: chest pain Endocrine: Denies: fatigue Gastrointestinal: Reports: as per HPI Genitourinary: Denies: urgency, dysuria Musculoskeletal: Denies: back pain Skin: Denies: rash Neurological: Denies: weakness Past Medical History Additional Past Medical History / Comment(s): migraines, bulemia History of Any Multi-Drug Resistant Organisms: None Reported Past Surgical History: Ear Surgery Additional Past Surgical History / Comment(s): Ganglion impar block. Past Psychological History: Anxiety, Depression Smoking Status: Current every day smoker Past Alcohol Use History: Rare Past Drug Use History: None Reported General Exam Limitations: no limitations General appearance: alert, in no apparent distress Head exam: Present: normocephalic Eye exam: Present: normal appearance Neck exam: Present: normal inspection Respiratory exam: Present: normal lung sounds bilaterally Cardiovascular Exam: Present: regular rate, normal rhythm GI/Abdominal exam: Present: soft, tenderness (Mild tenderness suprapubic region). Absent: distended External exam: Present: normal external exam (RN Sarah is present) Speculum exam: Present: vaginal bleeding (mild) By manual exam: Present: normal by manual exam, adnexal tenderness (Minimal left-sided). Absent: cervical motion tenderness, adnexal mass Extremities exam: Present: normal inspection Neurological exam: Present: alert Psychiatric exam: Present: normal affect, normal mood Skin exam: Present: normal color Course Vital Signs 05/02/21 05/02/21 11:59 12:15 Temperature 97.8 F Pulse Rate 52 L 58 L Respiratory 14 16 Rate Blood Pressure 93/53 92/52 O2 Sat by Pulse 99 99 Oximetry Medical Decision Making - Medical Decision Making Patient reevaluated and resting comfortably in bed. Patient sitting upright feeling much better. Patient states he is comfortable with discharge home. Patient and family updated on results - Lab Data Result diagrams: 05/02/21 12:46 05/02/21 12:46 Lab Results 05/02/21 05/02/21 05/02/21 Range/Units 12:46 12:46 12:46 WBC 12.0 H (3.8-10.6) k/uL RBC 4.02 (3.80-5.40) m/uL Hgb 11.6 (11.4-16.0) gm/dL Hct 36.4 (34.0-46.0) % MCV 90.6 (80.0-100.0) fL MCH 28.9 (25.0-35.0) pg MCHC 32.0 (31.0-37.0) g/dL RDW 13.7 (11.5-15.5) % Plt Count 198 (150-450) k/uL MPV 7.9 Neutrophils % 85 % Lymphocytes % 8 % Monocytes % 5 % Eosinophils % 1 % Basophils % 0 % Neutrophils # 10.2 H (1.3-7.7) k/uL Lymphocytes # 1.0 (1.0-4.8) k/uL Monocytes # 0.5 (0-1.0) k/uL Eosinophils # 0.1 (0-0.7) k/uL Basophils # 0.0 (0-0.2) k/uL PT 10.7 (9.0-12.0) sec INR 1.0 (<1.2) APTT 22.2 (22.0-30.0) sec Sodium (137-145) mmol/L Potassium (3.5-5.1) mmol/L Chloride (98-107) mmol/L Carbon Dioxide (22-30) mmol/L Anion Gap mmol/L BUN (7-17) mg/dL Creatinine (0.52-1.04) mg/dL Est GFR (CKD-EPI)AfAm (>60 ml/min/1.73 sqM) Est GFR (CKD-EPI)NonAf (>60 ml/min/1.73 sqM) Glucose (74-99) mg/dL Calcium (8.4-10.2) mg/dL Total Bilirubin (0.2-1.3) mg/dL AST (14-36) U/L ALT (4-34) U/L Alkaline Phosphatase (38-126) U/L Total Protein (6.3-8.2) g/dL Albumin (3.5-5.0) g/dL Urine Color Yellow Urine Appearance Cloudy H (Clear) Urine pH 7.5 (5.0-8.0) Ur Specific [place] 1.018 (1.001-1.035) Urine Protein 1+ H (Negative) Urine Glucose (UA) Negative (Negative) Urine Ketones Negative (Negative) Urine Blood Large H (Negative) Urine Nitrite Negative (Negative) Urine Bilirubin Negative (Negative) Urine Urobilinogen <2.0 (<2.0) mg/dL Ur Leukocyte Esterase Moderate H (Negative) Urine RBC 168 H (0-5) /hpf Urine WBC 12 H (0-5) /hpf Ur Squamous Epith Cells 14 H (0-4) /hpf Urine Bacteria Rare H (None) /hpf Urine Mucus Moderate H (None) /hpf Urine HCG, Qual (Not Detectd) Trichomonas Ag (Rapid) (Negative) 05/02/21 05/02/21 05/02/21 Range/Units 12:46 12:46 12:46 WBC (3.8-10.6) k/uL RBC (3.80-5.40) m/uL Hgb (11.4-16.0) gm/dL Hct (34.0-46.0) % MCV (80.0-100.0) fL MCH (25.0-35.0) pg MCHC (31.0-37.0) g/dL RDW (11.5-15.5) % Plt Count (150-450) k/uL MPV Neutrophils % % Lymphocytes % % Monocytes % % Eosinophils % % Basophils % % Neutrophils # (1.3-7.7) k/uL Lymphocytes # (1.0-4.8) k/uL Monocytes # (0-1.0) k/uL Eosinophils # (0-0.7) k/uL Basophils # (0-0.2) k/uL PT (9.0-12.0) sec INR (<1.2) APTT (22.0-30.0) sec Sodium 137 (137-145) mmol/L Potassium 4.7 (3.5-5.1) mmol/L Chloride 112 H (98-107) mmol/L Carbon Dioxide 22 (22-30) mmol/L Anion Gap 3 mmol/L BUN 10 (7-17) mg/dL Creatinine 0.49 L (0.52-1.04) mg/dL Est GFR (CKD-EPI)AfAm >90 (>60 ml/min/1.73 sqM) Est GFR (CKD-EPI)NonAf >90 (>60 ml/min/1.73 sqM) Glucose 100 H (74-99) mg/dL Calcium 8.7 (8.4-10.2) mg/dL Total Bilirubin 0.6 (0.2-1.3) mg/dL AST 23 (14-36) U/L ALT 11 (4-34) U/L Alkaline Phosphatase 84 (38-126) U/L Total Protein 6.6 (6.3-8.2) g/dL Albumin 3.9 (3.5-5.0) g/dL Urine Color Urine Appearance (Clear) Urine pH (5.0-8.0) Ur Specific [place] (1.001-1.035) Urine Protein (Negative) Urine Glucose (UA) (Negative) Urine Ketones (Negative) Urine Blood (Negative) Urine Nitrite (Negative) Urine Bilirubin (Negative) Urine Urobilinogen (<2.0) mg/dL Ur Leukocyte Esterase (Negative) Urine RBC (0-5) /hpf Urine WBC (0-5) /hpf Ur Squamous Epith Cells (0-4) /hpf Urine Bacteria (None) /hpf Urine Mucus (None) /hpf Urine HCG, Qual Not Detected (Not Detectd) Trichomonas Ag (Rapid) Negative (Negative) - Radiology Data Radiology results: report reviewed (Ultrasound shows small amount of free fluid in the pelvis.) Disposition Clinical Impression: Dysmenorrhea Disposition: HOME SELF-CARE Condition: Stable Instructions (If sedation given, give patient instructions): Dysmenorrhea (ED), Pelvic Pain in Women (ED) Additional Instructions: Please do follow-up with primary care physician in the next day or 2 for recheck. Consider [employer] follow-up, number provided. Return for increased pain, passing out, fever, weakness, worsening symptoms or other concerns. Is patient prescribed a controlled substance at d/c from ED?: No Referrals: Lauren Barajas MD [Primary Care Provider] - 1-2 days Clara Man DO [Doctor of Osteopathic Medicine] - 1-2 days Time of Disposition: 14:36
[2021-05-02 13:07] LABS: Basophils % (A) 0 %; Eosinophils # (A) 0.1 k/uL (0-0.7); Eosinophils % (A) 1 %; HCT 36.4 % (34.0-46.0); HGB 11.6 gm/dL (11.4-16.0); Lymphocytes % (A) 8 %; MCH 28.9 pg (25.0-35.0); MCV 90.6 fL (80.0-100.0); Mean Platelet Volume 7.9; Monocytes # (A) 0.5 k/uL (0-1.0); Monocytes % (A) 5 %; Neutrophils # (A) 10.2 k/uL (1.3-7.7); Neutrophils % (A) 85 %; Platelet Count 198 k/uL (150-450); RBC 4.02 m/uL (3.80-5.40); RDW 13.7 % (11.5-15.5)
[2021-05-02 13:19] LABS: ALT 11 U/L (4-34); AST 23 U/L (14-36); African American GFR (CKD) >90 (>60 ml/min/1.73 sqM); Albumin 3.9 g/dL (3.5-5.0); Alkaline Phosphatase 84 U/L (38-126); Anion Gap 3 mmol/L; Blood Urea Nitrogen 10 mg/dL (7-17); Calcium 8.7 mg/dL (8.4-10.2); Carbon Dioxide 22 mmol/L (22-30); Chloride 112 mmol/L (98-107); Glucose 100 mg/dL (74-99); Non-African American GFR(CKD) >90 (>60 ml/min/1.73 sqM); Potassium 4.7 mmol/L (3.5-5.1); Sodium 137 mmol/L (137-145); Total Bilirubin 0.6 mg/dL (0.2-1.3); Total Protein 6.6 g/dL (6.3-8.2)
[2021-05-02 13:36] LABS: Partial Thromboplastin Time 22.2 sec (22.0-30.0); Prothrombin Time 10.7 sec (9.0-12.0)
[2021-05-02 13:46] LABS: Appearance,Urine Cloudy (Clear); Bacteria,Urine Rare /hpf; Bilirubin,Urine Negative (Negative); Blood,Urine Large (Negative); Color,Urine Yellow; Glucose,Urine (UA) Negative (Negative); Ketones,Urine Negative (Negative); Leukocyte Esterase,Urine Moderate (Negative); Mucus,Urine Moderate /hpf; Nitrite,Urine Negative (Negative); PH, Urine 7.5 (5.0-8.0); Protein,Urine 1+ (Negative); RBC,Urine 168 /hpf (0-5); Specific Gravity,Urine 1.018 (1.001-1.035); Squamous Epithelial Cell,Urine 14 /hpf (0-4); Urobilinogen,Urine <2.0 mg/dL (<2.0); WBC,Urine 12 /hpf (0-5)
--- NOTE | 2021-05-02 14:26 | US ---
EXAMINATION TYPE: US transvaginal DATE OF EXAM: 05/02/2021 COMPARISON: Prior ultrasound dated 03/30/2016 CLINICAL HISTORY: pain. cramping TECHNIQUE: Transvaginal (TV). Date of LMP: 05/02/21 EXAM MEASUREMENTS: Uterus: 8.9x 4.3 x 7.2 cm Endometrial Stripe: 0.6 cm Right Ovary: 3.9 x 2.1 x 2.2 cm Left Ovary: 3.5 x 1.5 x 1.5 cm 1. Uterus: Anteverted slightly heterogenous 2. Endometrium: appears wnl 3. Right Ovary: multiple follicles 4. Left Ovary: multiple follicles Spectral, color and waveform doppler imaging shows arterial and venous flow within the ovaries. 5. Bilateral Adnexa: small amount of free fluid right adnexa 6. Posterior cul-de-sac: minimal free fluid IMPRESSION: Small amount of free fluid in the right adnexa.
[2021-05-02 14:50] VITALS: BP 110/60; PULSE 50
[2021-05-03 16:22] LABS: C. trachomatis,PCR Negative (Neg,Equiv); Chlamydia trachomatis Source Vagina; N. gonorrhoeae,PCR Negative (Neg,Equiv); Neisseria Source Vagina
== END 2021-05-02 14:52 | disposition home or self-care (01) ==
LOC: EC 11:58
DX: N94.6 Dysmenorrhea, unspecified (principal); F32.9 Major depressive disorder, single episode, unspecified; F41.9 Anxiety disorder, unspecified; G43.909 Migraine, unspecified, not intractable, without status migrainosus; F17.200 Nicotine dependence, unspecified, uncomplicated; Z79.899 Other long term (current) drug therapy; Z88.1 Allergy status to other antibiotic agents
CPT/HCPCS: 36415; 80053; 85025; 85610; 85730; 81001; 81025; 87808; 87491; 87591; 87070; 87086; 76830; 99284; 96374; 96361 ×2; J1885; 93975

== ENCOUNTER 2022-06-02 04:25 | Emergency (ER) | payer OTHER ==
[2022-06-02 04:32] VITALS: RESP 16; TEMP 98.4
[2022-06-02] MEDS ORDERED: SODIUM CHLORIDE 0.9% 500 ML 500 ML IV STA (04:54)
[2022-06-02] MEDS ORDERED: MAG HYDROX/AL HYDROX/SIMETH 30 ML, HYOSCYAMINE ELIXIR 10 ML, LIDOCAINE VISCOUS 2% 10 ML PO STA ×3 (05:01)
--- NOTE | 2022-06-02 05:03 | ED ---
Abdominal Pain HPI - General Chief Complaint: Abdominal Pain Stated Complaint: Abdominal Pain, Vomiting Time Seen by Provider: 06/02/22 04:55 Source: patient Mode of arrival: wheelchair Limitations: no limitations - History of Present Illness MD Complaint: abdominal pain Onset/Timin -: hour(s) Location: epigastric Radiation: none Migration to: no migration Severity: severe Quality: stabbing, sharp Consistency: constant Improves With: nothing Worsens With: nothing Associated Symptoms: denies other symptoms, nausea, vomiting - Related Data LMP (females 10-50): last week Home Medications Medication Instructions Recorded Confirmed cloNIDine HCL [Catapres] 0.2 mg PO HS 11/14/05/02/21 FLUoxetine HCL [PROzac] 20 mg PO DAILY 05/02/21 05/02/21 Multivitamins, Thera [Multivitamin 1 tab PO DAILY 05/02/21 05/02/21 (formulary)] Allergies Allergy/AdvReac Type Severity Reaction Status Date / Time azithromycin [From Zithromax] Allergy Rash/Hives Verified 05/02/21 13:40 Review of Systems ROS Statement: Those systems with pertinent positive or pertinent negative responses have been documented in the HPI. ROS Other: All systems not noted in ROS Statement are negative. Constitutional: Denies: fever, chills Respiratory: Denies: cough, dyspnea Cardiovascular: Denies: chest pain, palpitations Gastrointestinal: Reports: abdominal pain, nausea, vomiting. Denies: diarrhea, constipation, melena, hematochezia Genitourinary: Denies: dysuria, hematuria, abnormal menses Musculoskeletal: Denies: back pain Skin: Denies: rash Neurological: Denies: headache, weakness, numbness Past Medical History Additional Past Medical History / Comment(s): migraines, bulemia History of Any Multi-Drug Resistant Organisms: None Reported Past Surgical History: Ear Surgery Additional Past Surgical History / Comment(s): Ganglion impar block. Past Psychological History: Anxiety, Depression Smoking Status: Current every day smoker Past Alcohol Use History: Rare Past Drug Use History: None Reported General Exam Limitations: no limitations General appearance: alert, in no apparent distress Head exam: Present: atraumatic, normocephalic Eye exam: Present: normal appearance. Absent: scleral icterus, conjunctival injection Neck exam: Present: normal inspection Respiratory exam: Present: normal lung sounds bilaterally. Absent: respiratory distress, wheezes, rales, rhonchi, stridor Cardiovascular Exam: Present: regular rate, normal rhythm, normal heart sounds. Absent: systolic murmur, diastolic murmur, rubs, gallop GI/Abdominal exam: Present: soft. Absent: distended, tenderness, guarding, rebound, rigid, mass Extremities exam: Present: normal inspection, normal capillary refill. Absent: pedal edema, calf tenderness Back exam: Present: normal inspection. Absent: CVA tenderness (R), CVA tenderness (L) Neurological exam: Present: alert Skin exam: Present: warm, dry, intact, normal color. Absent: rash Course Vital Signs 06/02/22 06/02/22 06/02/22 04:28 07:46 09:33 Temperature 98.4 F Pulse Rate 76 55 L 52 L Respiratory 16 16 16 Rate Blood Pressure 103/67 90/47 90/54 O2 Sat by Pulse 98 99 99 Oximetry Medical Decision Making - Lab Data Result diagrams: 06/02/22 05:07 06/02/22 05:07 Lab Results 06/02/22 06/02/22 06/02/22 Range/Units 05:07 05:07 07:43 WBC 8.1 (3.8-10.6) k/uL RBC 4.00 (3.80-5.40) m/uL Hgb 11.7 (11.4-16.0) gm/dL Hct 36.8 (34.0-46.0) % MCV 92.0 (80.0-100.0) fL MCH 29.2 (25.0-35.0) pg MCHC 31.7 (31.0-37.0) g/dL RDW 12.7 (11.5-15.5) % Plt Count 255 (150-450) k/uL MPV 7.3 Neutrophils % 89 % Lymphocytes % 6 % Monocytes % 2 % Eosinophils % 2 % Basophils % 1 % Neutrophils # 7.2 (1.3-7.7) k/uL Lymphocytes # 0.5 L (1.0-4.8) k/uL Monocytes # 0.2 (0-1.0) k/uL Eosinophils # 0.2 (0-0.7) k/uL Basophils # 0.1 (0-0.2) k/uL Sodium 137 (137-145) mmol/L Potassium 4.0 (3.5-5.1) mmol/L Chloride 102 (98-107) mmol/L Carbon Dioxide 24 (22-30) mmol/L Anion Gap 11 mmol/L BUN 11 (7-17) mg/dL Creatinine 0.57 (0.52-1.04) mg/dL Est GFR (CKD-EPI)AfAm >90 (>60 ml/min/1.73 sqM) Est GFR (CKD-EPI)NonAf >90 (>60 ml/min/1.73 sqM) Glucose 111 H (74-99) mg/dL Calcium 9.1 (8.4-10.2) mg/dL Total Bilirubin 0.5 (0.2-1.3) mg/dL AST 27 (14-36) U/L ALT 14 (4-34) U/L Alkaline Phosphatase 66 (38-126) U/L Total Protein 6.6 (6.3-8.2) g/dL Albumin 4.1 (3.5-5.0) g/dL Amylase 72 (30-110) U/L Lipase 68 (23-300) U/L Urine Color Yellow Urine Appearance Cloudy H (Clear) Urine pH 6.5 (5.0-8.0) Ur Specific [place] 1.014 (1.001-1.035) Urine Protein Negative (Negative) Urine Glucose (UA) Negative (Negative) Urine Ketones Negative (Negative) Urine Blood Moderate H (Negative) Urine Nitrite Negative (Negative) Urine Bilirubin Negative (Negative) Urine Urobilinogen <2.0 (<2.0) mg/dL Ur Leukocyte Esterase Small H (Negative) Urine RBC 1 (0-5) /hpf Urine WBC 6 H (0-5) /hpf Ur Squamous Epith Cells 4 (0-4) /hpf Amorphous Sediment Few H (None) /hpf Urine Mucus Many H (None) /hpf Urine HCG, Qual (Not Detectd) 06/02/22 Range/Units 07:43 WBC (3.8-10.6) k/uL RBC (3.80-5.40) m/uL Hgb (11.4-16.0) gm/dL Hct (34.0-46.0) % MCV (80.0-100.0) fL MCH (25.0-35.0) pg MCHC (31.0-37.0) g/dL RDW (11.5-15.5) % Plt Count (150-450) k/uL MPV Neutrophils % % Lymphocytes % % Monocytes % % Eosinophils % % Basophils % % Neutrophils # (1.3-7.7) k/uL Lymphocytes # (1.0-4.8) k/uL Monocytes # (0-1.0) k/uL Eosinophils # (0-0.7) k/uL Basophils # (0-0.2) k/uL Sodium (137-145) mmol/L Potassium (3.5-5.1) mmol/L Chloride (98-107) mmol/L Carbon Dioxide (22-30) mmol/L Anion Gap mmol/L BUN (7-17) mg/dL Creatinine (0.52-1.04) mg/dL Est GFR (CKD-EPI)AfAm (>60 ml/min/1.73 sqM) Est GFR (CKD-EPI)NonAf (>60 ml/min/1.73 sqM) Glucose (74-99) mg/dL Calcium (8.4-10.2) mg/dL Total Bilirubin (0.2-1.3) mg/dL AST (14-36) U/L ALT (4-34) U/L Alkaline Phosphatase (38-126) U/L Total Protein (6.3-8.2) g/dL Albumin (3.5-5.0) g/dL Amylase (30-110) U/L Lipase (23-300) U/L Urine Color Urine Appearance (Clear) Urine pH (5.0-8.0) Ur Specific [place] (1.001-1.035) Urine Protein (Negative) Urine Glucose (UA) (Negative) Urine Ketones (Negative) Urine Blood (Negative) Urine Nitrite (Negative) Urine Bilirubin (Negative) Urine Urobilinogen (<2.0) mg/dL Ur Leukocyte Esterase (Negative) Urine RBC (0-5) /hpf Urine WBC (0-5) /hpf Ur Squamous Epith Cells (0-4) /hpf Amorphous Sediment (None) /hpf Urine Mucus (None) /hpf Urine HCG, Qual Not Detected (Not Detectd) Disposition Clinical Impression: Abdominal pain Disposition: HOME SELF-CARE Instructions (If sedation given, give patient instructions): Acute Abdominal Pain (ED) Is patient prescribed a controlled substance at d/c from ED?: No Referrals: None,Stated [Primary Care Provider] - 1-2 days
[2022-06-02 05:17] LABS: Basophils # (A) 0.1 k/uL (0-0.2); Basophils % (A) 1 %; Eosinophils # (A) 0.2 k/uL (0-0.7); Eosinophils % (A) 2 %; HCT 36.8 % (34.0-46.0); HGB 11.7 gm/dL (11.4-16.0); Lymphocytes # (A) 0.5 k/uL (1.0-4.8); Lymphocytes % (A) 6 %; MCH 29.2 pg (25.0-35.0); MCHC 31.7 g/dL (31.0-37.0); Mean Platelet Volume 7.3; Monocytes # (A) 0.2 k/uL (0-1.0); Monocytes % (A) 2 %; Neutrophils # (A) 7.2 k/uL (1.3-7.7); Neutrophils % (A) 89 %; Platelet Count 255 k/uL (150-450); RDW 12.7 % (11.5-15.5); WBC 8.1 k/uL (3.8-10.6)
[2022-06-02 05:33] LABS: ALT 14 U/L (4-34); AST 27 U/L (14-36); African American GFR (CKD) >90 (>60 ml/min/1.73 sqM); Albumin 4.1 g/dL (3.5-5.0); Alkaline Phosphatase 66 U/L (38-126); Amylase 72 U/L (30-110); Anion Gap 11 mmol/L; Blood Urea Nitrogen 11 mg/dL (7-17); Calcium 9.1 mg/dL (8.4-10.2); Carbon Dioxide 24 mmol/L (22-30); Chloride 102 mmol/L (98-107); Glucose 111 mg/dL (74-99); Lipase 68 U/L (23-300); Non-African American GFR(CKD) >90 (>60 ml/min/1.73 sqM); Sodium 137 mmol/L (137-145); Total Bilirubin 0.5 mg/dL (0.2-1.3); Total Protein 6.6 g/dL (6.3-8.2)
[2022-06-02 08:01] LABS: Amorphous Sediment,Urine Few /hpf; Appearance,Urine Cloudy (Clear); Bilirubin,Urine Negative (Negative); Blood,Urine Moderate (Negative); Color,Urine Yellow; Glucose,Urine (UA) Negative (Negative); Ketones,Urine Negative (Negative); Leukocyte Esterase,Urine Small (Negative); Mucus,Urine Many /hpf; Nitrite,Urine Negative (Negative); PH, Urine 6.5 (5.0-8.0); Protein,Urine Negative (Negative); RBC,Urine 1 /hpf (0-5); Specific Gravity,Urine 1.014 (1.001-1.035); Squamous Epithelial Cell,Urine 4 /hpf (0-4); Urobilinogen,Urine <2.0 mg/dL (<2.0); WBC,Urine 6 /hpf (0-5)
[2022-06-02 09:34] VITALS: BP 90/54; PULSE 52
== END 2022-06-02 09:54 | disposition home or self-care (01) ==
LOC: EC 04:25
DX: R10.9 Unspecified abdominal pain (principal); F17.200 Nicotine dependence, unspecified, uncomplicated; Z88.1 Allergy status to other antibiotic agents
CPT/HCPCS: 36415; 80053; 81001; 81025; 82150; 83690; 85025

== ENCOUNTER 2022-06-28 11:55 | Emergency (ER) | payer OTHER ==
[2022-06-28] MEDS ORDERED: SODIUM CHLORIDE 0.9% 500 ML 500 ML IV STA (12:29)
[2022-06-28] MEDS ORDERED: ONDANSETRON 4 MG/2 ML VIAL IVP STA (12:29)
--- NOTE | 2022-06-28 12:33 | ED ---
General Adult HPI - General Chief complaint: Abdominal Pain Stated complaint: abd pain, hematemesis Time Seen by Provider: 06/28/22 12:24 Source: patient, RN notes reviewed, old records reviewed Mode of arrival: ambulatory Limitations: no limitations - History of Present Illness Initial comments: This is a well-appearing 27-year-old female who presents to the emergency room with 2 weeks of right upper quadrant abdominal pain that is intermittent. She states it is cramping in nature. She has had accompanying nausea but no vomiting. She denies any fevers. She denies any chest pain or difficulty breathing. She does have occasional diarrhea which is chronic for her. No history of irritable bowel syndrome. She denies any alcohol or drug use, she does vape. She states that she also has a history of bulimia but is taking clonidine and Prozac and has been in recovery for years. -: week(s) (2) Location: abdomen (RUQ) Radiation: non-radiation Severity scale (1-10): 4 Quality: other (cramping) Associated Symptoms: nausea/vomiting Treatments Prior to Arrival: none - Related Data Home Medications Medication Instructions Recorded Confirmed cloNIDine HCL [Catapres] 0.2 mg PO HS 11/14/15 06/28/22 FLUoxetine HCL [PROzac] 20 mg PO HS 05/02/21 06/28/22 Allergies Allergy/AdvReac Type Severity Reaction Status Date / Time azithromycin [From Zithromax] Allergy Rash/Hives Verified 06/28/22 14:15 Review of Systems ROS Statement: Those systems with pertinent positive or pertinent negative responses have been documented in the HPI. ROS Other: All systems not noted in ROS Statement are negative. Past Medical History Additional Past Medical History / Comment(s): migraines, bulemia History of Any Multi-Drug Resistant Organisms: None Reported Past Surgical History: Ear Surgery Additional Past Surgical History / Comment(s): Ganglion impar block. Past Psychological History: Anxiety, Depression Smoking Status: Current every day smoker, Vaper Past Alcohol Use History: Rare Past Drug Use History: None Reported General Exam Limitations: no limitations General appearance: alert, in no apparent distress Head exam: Present: atraumatic, normocephalic Eye exam: Present: normal appearance. Absent: scleral icterus, conjunctival injection, periorbital swelling Respiratory exam: Present: normal lung sounds bilaterally. Absent: respiratory distress, wheezes, rales, rhonchi, stridor, chest wall tenderness, accessory muscle use Cardiovascular Exam: Present: regular rate, normal heart sounds GI/Abdominal exam: Present: soft, tenderness (Right upper quadrant minimal). Absent: distended, guarding, rebound, rigid Extremities exam: Present: normal capillary refill. Absent: pedal edema Neurological exam: Present: alert, oriented X3, normal gait Psychiatric exam: Present: normal affect, normal mood Skin exam: Present: warm, dry, normal color. Absent: cyanosis, diaphoretic, petechiae, pallor Course Vital Signs 06/28/22 06/28/22 12:11 14:49 Temperature 98 F 98.2 F Pulse Rate 63 72 Respiratory 16 18 Rate Blood Pressure 84/60 101/68 O2 Sat by Pulse 98 97 Oximetry Medical Decision Making - Medical Decision Making Ultrasound the right upper quadrant shows no acute process. Gallbladder within normal limits, pancreas and liver also within normal limits. Labs are within normal limits. No evidence of urinary tract infection. Patient has had no vomiting. She denies any dizziness, chest pain or difficulty breathing. There is no leg swelling or calf tenderness. On exam patient has minimal right upper quadrant tenderness. Abdomen is soft. Vital signs are stable . At this time I do not have a cause for her right upper quadrant pain. She was directed to follow-up with her primary care doctor for continuation of care, return to the emergency room with any new or concerning symptoms. Case discussed Dr. Peck. - Lab Data Result diagrams: 06/28/22 13:00 06/28/22 13:00 Lab Results 06/28/22 06/28/22 06/28/22 Range/Units 13:00 13:00 13:00 WBC 6.4 (3.8-10.6) k/uL RBC 4.20 (3.80-5.40) m/uL Hgb 12.4 (11.4-16.0) gm/dL Hct 38.5 (34.0-46.0) % MCV 91.6 (80.0-100.0) fL MCH 29.4 (25.0-35.0) pg MCHC 32.1 (31.0-37.0) g/dL RDW 12.7 (11.5-15.5) % Plt Count 276 (150-450) k/uL MPV 7.9 Neutrophils % 59 % Lymphocytes % 29 % Monocytes % 7 % Eosinophils % 4 % Basophils % 1 % Neutrophils # 3.8 (1.3-7.7) k/uL Lymphocytes # 1.8 (1.0-4.8) k/uL Monocytes # 0.4 (0-1.0) k/uL Eosinophils # 0.2 (0-0.7) k/uL Basophils # 0.0 (0-0.2) k/uL Sodium (137-145) mmol/L Potassium (3.5-5.1) mmol/L Chloride (98-107) mmol/L Carbon Dioxide (22-30) mmol/L Anion Gap mmol/L BUN (7-17) mg/dL Creatinine (0.52-1.04) mg/dL Est GFR (CKD-EPI)AfAm (>60 ml/min/1.73 sqM) Est GFR (CKD-EPI)NonAf (>60 ml/min/1.73 sqM) Glucose (74-99) mg/dL Calcium (8.4-10.2) mg/dL Total Bilirubin (0.2-1.3) mg/dL AST (14-36) U/L ALT (4-34) U/L Alkaline Phosphatase (38-126) U/L Total Protein (6.3-8.2) g/dL Albumin (3.5-5.0) g/dL Amylase (30-110) U/L Lipase (23-300) U/L Urine Color Colorless Urine Appearance Clear (Clear) Urine pH 8.0 (5.0-8.0) Ur Specific [place] 1.008 (1.001-1.035) Urine Protein Negative (Negative) Urine Glucose (UA) Negative (Negative) Urine Ketones Negative (Negative) Urine Blood Negative (Negative) Urine Nitrite Negative (Negative) Urine Bilirubin Negative (Negative) Urine Urobilinogen <2.0 (<2.0) mg/dL Ur Leukocyte Esterase Negative (Negative) Urine HCG, Qual Not Detected (Not Detectd) 06/28/22 Range/Units 13:00 WBC (3.8-10.6) k/uL RBC (3.80-5.40) m/uL Hgb (11.4-16.0) gm/dL Hct (34.0-46.0) % MCV (80.0-100.0) fL MCH (25.0-35.0) pg MCHC (31.0-37.0) g/dL RDW (11.5-15.5) % Plt Count (150-450) k/uL MPV Neutrophils % % Lymphocytes % % Monocytes % % Eosinophils % % Basophils % % Neutrophils # (1.3-7.7) k/uL Lymphocytes # (1.0-4.8) k/uL Monocytes # (0-1.0) k/uL Eosinophils # (0-0.7) k/uL Basophils # (0-0.2) k/uL Sodium 139 (137-145) mmol/L Potassium 4.0 (3.5-5.1) mmol/L Chloride 106 (98-107) mmol/L Carbon Dioxide 25 (22-30) mmol/L Anion Gap 8 mmol/L BUN 9 (7-17) mg/dL Creatinine 0.60 (0.52-1.04) mg/dL Est GFR (CKD-EPI)AfAm >90 (>60 ml/min/1.73 sqM) Est GFR (CKD-EPI)NonAf >90 (>60 ml/min/1.73 sqM) Glucose 85 (74-99) mg/dL Calcium 9.2 (8.4-10.2) mg/dL Total Bilirubin 0.5 (0.2-1.3) mg/dL AST 20 (14-36) U/L ALT 12 (4-34) U/L Alkaline Phosphatase 77 (38-126) U/L Total Protein 6.7 (6.3-8.2) g/dL Albumin 4.3 (3.5-5.0) g/dL Amylase 63 (30-110) U/L Lipase 76 (23-300) U/L Urine Color Urine Appearance (Clear) Urine pH (5.0-8.0) Ur Specific [place] (1.001-1.035) Urine Protein (Negative) Urine Glucose (UA) (Negative) Urine Ketones (Negative) Urine Blood (Negative) Urine Nitrite (Negative) Urine Bilirubin (Negative) Urine Urobilinogen (<2.0) mg/dL Ur Leukocyte Esterase (Negative) Urine HCG, Qual (Not Detectd) Disposition Clinical Impression: Abdominal pain Disposition: HOME SELF-CARE Condition: Good Instructions (If sedation given, give patient instructions): Abdominal Pain (ED) Additional Instructions: At this time do not have a cause for your abdominal pain. Your labs and ultrasound did not show any abnormalities. Please follow-up with the primary care doctor for continuation of care and possible further testing. Return to the emergency room with any new or concerning symptoms including persistent nausea vomiting or fevers. Is patient prescribed a controlled substance at d/c from ED?: No Referrals: Evelio Horvath PAC [Primary Care Provider] - 1-2 days Time of Disposition: 14:40
--- NOTE | 2022-06-28 13:06 | US ---
EXAMINATION TYPE: US abdomen limited DATE OF EXAM: 06/28/2022 COMPARISON: NONE CLINICAL HISTORY: gallbladder RUQ pain. Hematemesis TECHNIQUE: Multiple sonographic images of the right upper quadrant are obtained. FINDINGS: EXAM MEASUREMENTS: Liver Length: 11.4 cm Gallbladder Wall: 0.11 cm CBD: 0.26 cm Right Kidney: 10.4 x 3.2 x 5.2 cm Pancreas: wnl Liver: wnl Gallbladder: wnl Evidence for sonographic Rajan's sign: No CBD: wnl Right Kidney: wnl IMPRESSION: No acute process as visualized.
[2022-06-28 13:26] LABS: Basophils % (A) 1 %; Eosinophils # (A) 0.2 k/uL (0-0.7); Eosinophils % (A) 4 %; HCT 38.5 % (34.0-46.0); HGB 12.4 gm/dL (11.4-16.0); Lymphocytes # (A) 1.8 k/uL (1.0-4.8); Lymphocytes % (A) 29 %; MCH 29.4 pg (25.0-35.0); MCHC 32.1 g/dL (31.0-37.0); MCV 91.6 fL (80.0-100.0); Mean Platelet Volume 7.9; Monocytes # (A) 0.4 k/uL (0-1.0); Monocytes % (A) 7 %; Neutrophils # (A) 3.8 k/uL (1.3-7.7); Neutrophils % (A) 59 %; Platelet Count 276 k/uL (150-450); RDW 12.7 % (11.5-15.5); WBC 6.4 k/uL (3.8-10.6)
[2022-06-28 13:42] LABS: ALT 12 U/L (4-34); AST 20 U/L (14-36); African American GFR (CKD) >90 (>60 ml/min/1.73 sqM); Albumin 4.3 g/dL (3.5-5.0); Alkaline Phosphatase 77 U/L (38-126); Amylase 63 U/L (30-110); Anion Gap 8 mmol/L; Blood Urea Nitrogen 9 mg/dL (7-17); Calcium 9.2 mg/dL (8.4-10.2); Carbon Dioxide 25 mmol/L (22-30); Chloride 106 mmol/L (98-107); Glucose 85 mg/dL (74-99); Lipase 76 U/L (23-300); Non-African American GFR(CKD) >90 (>60 ml/min/1.73 sqM); Sodium 139 mmol/L (137-145); Total Bilirubin 0.5 mg/dL (0.2-1.3); Total Protein 6.7 g/dL (6.3-8.2)
[2022-06-28 14:08] LABS: Appearance,Urine Clear (Clear); Bilirubin,Urine Negative (Negative); Blood,Urine Negative (Negative); Color,Urine Colorless; Glucose,Urine (UA) Negative (Negative); Ketones,Urine Negative (Negative); Leukocyte Esterase,Urine Negative (Negative); Nitrite,Urine Negative (Negative); Protein,Urine Negative (Negative); Specific Gravity,Urine 1.008 (1.001-1.035); Urobilinogen,Urine <2.0 mg/dL (<2.0)
[2022-06-28 14:50] VITALS: BP 101/68; PULSE 72; RESP 18; TEMP 98.2
== END 2022-06-28 15:00 | disposition home or self-care (01) ==
LOC: EC 11:55
DX: R10.11 Right upper quadrant pain (principal); R11.2 Nausea with vomiting, unspecified; F17.200 Nicotine dependence, unspecified, uncomplicated; Z88.1 Allergy status to other antibiotic agents
CPT/HCPCS: 36415; 80053; 82150; 83690; 85025; 81003; 81025; 76705; 99284; 96374; 96361; J2405

== ENCOUNTER 2022-10-16 11:02 | Observation (INO) | payer OTHER ==
[2022-10-16] MEDS ORDERED: ONDANSETRON 4 MG/2 ML VIAL IVP STA (11:10)
[2022-10-16] MEDS ORDERED: MORPHINE SULFATE 4 MG/ML SYRINGE IV STA (11:10)
[2022-10-16] MEDS ORDERED: SODIUM CHLORIDE 0.9% 1,000 ML IV STA (11:10)
--- NOTE | 2022-10-16 11:23 | ED ---
General Adult HPI - General Stated complaint: AMS Time Seen by Provider: 10/16/22 11:09 - History of Present Illness Initial comments: Dictation was produced using [employer] dictation software. please excuse any grammatical, word or spelling errors. Chief Complaint: 27-year-old male presents to the emergency department for abdominal pain and altered mental status History of Present Illness: 27-year-old female presents emergency department for abdominal pain and altered mental status. History of present illness obtained from boyfriend was at the bedside. His name is Torrey. He reports that patient has been 3-4 days into antibiotics to treat double ear infection and sinus infection. She has had painful menstrual cycles in the past. Since he is no her she has not had any hospitalizations for this. She does not have any known history of endometriosis or any other sort of pelvic pathology. Patient unable to provide his present illness at this time due to altered mentation. There is been no reports of headache recently. Her nausea vomiting. Patient has history of bulimia. Chart review shows that patient has been seen here in emergency department multiple occasions for abdominal pain. The ROS documented in this emergency department record has been reviewed and confirmed by me. Those systems with pertinent positive or negative responses have been documented in the HPI. All other systems are other negative and/or noncontributory. PHYSICAL EXAM: General Impression: Acute distress secondary to pain, not following commands uncooperative HEENT: Normocephalic atraumatic, extra-ocular movements intact, pupils equal and reactive to light bilaterally, dry mucous membranes Cardiovascular: Heart regular rate and rhythm Chest: Able to complete full sentences, no retractions, no tachypnea Abdomen: Diffuse palpatory tenderness Musculoskeletal: Pulses present and equal in all extremities, no peripheral edema Motor: no focal deficits noted Neurological: Uncooperative, not following commands she is moving all ex tremities grossly Skin: Pale ED course: 27-year-old female presents to the emergency department for altered mental status, severe abdominal pain. Nursing notes and chart review was performed Patient given IV fluids and analgesics. She is reevaluated bedside after several hours initially. Patient is much more comfortable appearing. She states that her abdominal pain is gone away. She states that this morning she woke up had felt fine upon waking then began experiencing severe lower abdominal pain. States the pain was so bad. She had episodes like this in the past actually was admitted to the hospital for similar issues in the past. She feels like she has irritable bowel syndrome however hasn't been formally diagnosed. Patient takes fluoxetine for depression. She's been taking it for 2 years. My EKG interpretation: Ventricular rate 56, sinus bradycardia,. 144, QRS 91, QTc 505. No ID prolongation. EKG concerning for prolonged QT Laboratory evaluation obtained. CBC, metabolic panel was obtained. There is some non-gap acidosis. Lactic acid level of 6.9. Beta Quant is negative. Abdominal labs negative. Transvaginal ultrasound is unremarkable for any cause of severe pelvic pain. Computed tomography scan abdomen and pelvis is unremarkable. Radiology report reviewed suggesting that patient may have early signs of acute appendicitis. Patient be evaluated at bedside at 2:00 PM does not have any significant pain in the right lower quadrant or suprapubic area. Patient's well appearing at the bedside. Patient be admitted for cardiac monitoring for monitoring of prolonged QT. Was pt. sent in by a medical professional or institution? @ no Did you speak to anyone other than the patient for history? @Boyfriend Did you review nursing and triage notes? @Yes agree Were old charts reviewed? @ no Differential Diagnosis? @ MDM Differential Abdominal Pain Women: Appendicitis, Cholecystitis, diverticulosis, ischemic bowel, pancreatitis, hepatitis, UTI, gastroenteritis, AAA, incarcerated hernia, bowel obstruction, constipation, inflammatory bowel, hepatitis, peptic ulcer disease, splenic infarction, perforated viscus, vulvitis, ovarian torsion, PID, kidney stone, placenta abruption... This is not meant to be an all-inclusive list EKG interpreted by me (3pts min.)? @See above X-rays interpreted by me (1pt min.)? @ none CT interpreted by me (1pt min.)? @see above U/S interpreted by me (1pt. min.)? @See above What testing was considered but not performed? (CT, X-rays, U/S, labs)? Why? @ na What meds were considered but not given? Why? @ None Did you discuss the management of the patient with other professionals? @Sound physician, Dr. Devlin Did you reconcile home meds? @ none Was smoking cessation discussed for >3mins.? @ none Was critical care preformed (if so, how long)? @ yes, 33 minutes Were there social determinants of health that impacted care today? How? (Homelessness, low income, unemployed, alcoholism, drug addiction, transportation, low edu. Level, literacy, decrease access to med. care, [facility], rehab)? @ no Was there de-escalation of care discussed even if they declined? (Discuss DNR or withdrawal of care, Hospice)? @ na What co-morbidities impacted this encounter? (DM, HTN, Smoking, COPD, CAD, Cancer, CVA, Hep., AIDS, mental health diagnosis, sleep apnea, morbid ob esity)? @ none Was patient admitted / discharged? @Admitted for prolonged QT. See above for further detail Undiagnosed new problem with uncertain prognosis? @New problem Drug Therapy requiring intensive monitoring for toxicity (Heparin, Nitro, Insulin, Cardizem)? @Yes. Patient being monitored for prolonged QT which may cause tachydysrhythmia Were any procedures done? @ no Diagnosis/symptom? @Prolonged QT Acute, or Chronic, or Acute on Chronic? @Acute Uncomplicated (without systemic symptoms) or Complicated (systemic symptoms)? @Uncomplicated Side effects of treatment? @ none Exacerbation, Progression, or Severe Exacerbation] @ no Poses a threat to life or bodily function? @Yes - Related Data Home Medications Medication Instructions Recorded Confirmed cloNIDine HCL [Catapres] 0.2 mg PO HS 11/14/15 10/16/22 FLUoxetine HCL [PROzac] 20 mg PO HS 05/02/21 10/16/22 Amoxicillin 500 mg PO Q8H 10/16/22 10/16/22 Tenapanor HCl [Ibsrela] 50 mg PO DAILY 10/16/22 10/16/22 Allergies Allergy/AdvReac Type Severity Reaction Status Date / Time azithromycin [From Zithromax] Allergy Rash/Hives Verified 10/16/22 13:43 Review of Systems ROS Statement: Those systems with pertinent positive or pertinent negative responses have been documented in the HPI. ROS Other: All systems not noted in ROS Statement are negative. Past Medical History Additional Past Medical History / Comment(s): migraines, bulemia History of Any Multi-Drug Resistant Organisms: None Reported Past Surgical History: Ear Surgery Additional Past Surgical History / Comment(s): Ganglion impar block. Past Psychological History: Anxiety, Depression Smoking Status: Current every day smoker, Vaper Past Alcohol Use History: Rare Past Drug Use History: None Reported Course Vital Signs 10/16/22 10/16/2223 11:26 11:56 12:00 Temperature 97.7 F Pulse Rate 56 L 50 L 50 L Respiratory 16 16 17 Rate Blood Pressure 103/56 97/58 97/58 O2 Sat by Pulse 100 100 99 Oximetry 10/16/22 10/16/22 12:30 13:00 Temperature Pulse Rate 60 58 L Respiratory 16 18 Rate Blood Pressure 103/59 98/60 O2 Sat by Pulse Oximetry Medical Decision Making - Lab Data Result diagrams: 10/16/22 11:31 10/16/22 11:31 Lab Results 10/16/22 10/16/22 10/16/22 Range/Units 11:08 11:25 11:30 WBC (3.8-10.6) k/uL RBC (3.80-5.40) m/uL Hgb (11.4-16.0) gm/dL Hct (34.0-46.0) % MCV (80.0-100.0) fL MCH (25.0-35.0) pg MCHC (31.0-37.0) g/dL RDW (11.5-15.5) % Plt Count (150-450) k/uL MPV Neutrophils % % Lymphocytes % % Monocytes % % Eosinophils % % Basophils % % Neutrophils # (1.3-7.7) k/uL Lymphocytes # (1.0-4.8) k/uL Monocytes # (0-1.0) k/uL Eosinophils # (0-0.7) k/uL Basophils # (0-0.2) k/uL Hypochromasia Sodium (137-145) mmol/L Potassium (3.5-5.1) mmol/L Chloride (98-107) mmol/L Carbon Dioxide (22-30) mmol/L Anion Gap mmol/L BUN (7-17) mg/dL Creatinine (0.52-1.04) mg/dL Est GFR (CKD-EPI)AfAm (>60 ml/min/1.73 sqM) Est GFR (CKD-EPI)NonAf (>60 ml/min/1.73 sqM) Glucose (74-99) mg/dL POC Glucose (mg/dL) 110 (70-110) mg/dL POC Glu Identification And Records Commander ID Maryse Michelle Plasma Lactic Acid Joselo (0.7-2.0) mmol/L Calcium (8.4-10.2) mg/dL Magnesium (1.6-2.3) mg/dL Total Bilirubin (0.2-1.3) mg/dL AST (14-36) U/L ALT (4-34) U/L Alkaline Phosphatase (38-126) U/L Total Protein (6.3-8.2) g/dL Albumin (3.5-5.0) g/dL HCG, Quant mIU/mL Blood Type O Positive Blood Type Confirm O Positive Blood Type Recheck Bld Type Recheck Status Antibody Screen NEGATIVE Spec Expiration Date 10/16/22 10/16/22 10/16/22 Range/Units 11:31 11:31 11:31 WBC 9.6 (3.8-10.6) k/uL RBC 4.26 (3.80-5.40) m/uL Hgb 12.5 (11.4-16.0) gm/dL Hct 38.4 (34.0-46.0) % MCV 90.3 (80.0-100.0) fL MCH 29.3 (25.0-35.0) pg MCHC 32.5 (31.0-37.0) g/dL RDW 12.3 (11.5-15.5) % Plt Count 337 (150-450) k/uL MPV 8.8 Neutrophils % 58 % Lymphocytes % 32 % Monocytes % 5 % Eosinophils % 2 % Basophils % 0 % Neutrophils # 5.6 (1.3-7.7) k/uL Lymphocytes # 3.1 (1.0-4.8) k/uL Monocytes # 0.5 (0-1.0) k/uL Eosinophils # 0.2 (0-0.7) k/uL Basophils # 0.0 (0-0.2) k/uL Hypochromasia Slight Sodium 138 (137-145) mmol/L Potassium 3.8 (3.5-5.1) mmol/L Chloride 106 (98-107) mmol/L Carbon Dioxide 18 L (22-30) mmol/L Anion Gap 14 mmol/L BUN 10 (7-17) mg/dL Creatinine 0.56 (0.52-1.04) mg/dL Est GFR (CKD-EPI)AfAm >90 (>60 ml/min/1.73 sqM) Est GFR (CKD-EPI)NonAf >90 (>60 ml/min/1.73 sqM) Glucose 124 H (74-99) mg/dL POC Glucose (mg/dL) (70-110) mg/dL POC Glu Identification And Records Commander ID Plasma Lactic Acid Joselo 6.9 H* (0.7-2.0) mmol/L Calcium 8.9 (8.4-10.2) mg/dL Magnesium 1.9 (1.6-2.3) mg/dL Total Bilirubin 0.3 (0.2-1.3) mg/dL AST 23 (14-36) U/L ALT 18 (4-34) U/L Alkaline Phosphatase 88 (38-126) U/L Total Protein 7.1 (6.3-8.2) g/dL Albumin 4.1 (3.5-5.0) g/dL HCG, Quant <2.4 mIU/mL Blood Type Blood Type Confirm Blood Type Recheck Bld Type Recheck Status Antibody Screen Spec Expiration Date 10/16/22 Range/Units 11:31 WBC (3.8-10.6) k/uL RBC (3.80-5.40) m/uL Hgb (11.4-16.0) gm/dL Hct (34.0-46.0) % MCV (80.0-100.0) fL MCH (25.0-35.0) pg MCHC (31.0-37.0) g/dL RDW (11.5-15.5) % Plt Count (150-450) k/uL MPV Neutrophils % % Lymphocytes % % Monocytes % % Eosinophils % % Basophils % % Neutrophils # (1.3-7.7) k/uL Lymphocytes # (1.0-4.8) k/uL Monocytes # (0-1.0) k/uL Eosinophils # (0-0.7) k/uL Basophils # (0-0.2) k/uL Hypochromasia Sodium (137-145) mmol/L Potassium (3.5-5.1) mmol/L Chloride (98-107) mmol/L Carbon Dioxide (22-30) mmol/L Anion Gap mmol/L BUN (7-17) mg/dL Creatinine (0.52-1.04) mg/dL Est GFR (CKD-EPI)AfAm (>60 ml/min/1.73 sqM) Est GFR (CKD-EPI)NonAf (>60 ml/min/1.73 sqM) Glucose (74-99) mg/dL POC Glucose (mg/dL) (70-110) mg/dL POC Glu Identification And Records Commander ID Plasma Lactic Acid Joselo (0.7-2.0) mmol/L Calcium (8.4-10.2) mg/dL Magnesium (1.6-2.3) mg/dL Total Bilirubin (0.2-1.3) mg/dL AST (14-36) U/L ALT (4-34) U/L Alkaline Phosphatase (38-126) U/L Total Protein (6.3-8.2) g/dL Albumin (3.5-5.0) g/dL HCG, Quant mIU/mL Blood Type Blood Type Confirm Blood Type Recheck No Previous Record Bld Type Recheck Status CABO Indicated Antibody Screen Spec Expiration Date 10/19/20222330 Disposition Clinical Impression: Prolonged QT interval Disposition: [facility]ITT[facility] Condition: Serious Referrals: Evelio Horvath, PAC [Primary Care Provider] - 1-2 days Decision Time: 14:14
[2022-10-16 11:27] LABS: Glucose,Whole Blood 110 mg/dL (70-110)
--- NOTE | 2022-10-16 12:00 | CT ---
EXAMINATION TYPE: CT brain wo con DATE OF EXAM: 10/16/2022 COMPARISON: 11/19/2018 HISTORY: 27-year-old female confusion, altered mental status Syncope. TECHNIQUE: Examination was done in axial plane without intravenous contrast. Coronal and sagittal r econstructions performed. CT DLP: 1091.4 mGycm Automated exposure control for dose reduction was used. FINDINGS: There is no evidence of acute intracranial hemorrhage, acute ischemic changes, mass, mass-effect, or extra-axial fluid collection. There is no effacement of cerebral sulci or basal subarachnoid cister ns. There is no hydrocephalus. There is no midline shift. Dao-white matter distinction is preserv ed. Mucosal thickening and small air-fluid levels in the maxillary sinuses. Mild to moderate mucosal thic kening ethmoid air cells. Mastoid air cells well pneumatized. Orbits and globes are intact. IMPRESSION: No acute intracranial abnormality seen. Correlate for acute on chronic maxillary sinusitis.
[2022-10-16 12:03] LABS: Basophils % (A) 0 %; Eosinophils # (A) 0.2 k/uL (0-0.7); Eosinophils % (A) 2 %; HCT 38.4 % (34.0-46.0); HGB 12.5 gm/dL (11.4-16.0); Hypochromasia Slight; Lymphocytes # (A) 3.1 k/uL (1.0-4.8); Lymphocytes % (A) 32 %; MCH 29.3 pg (25.0-35.0); MCHC 32.5 g/dL (31.0-37.0); MCV 90.3 fL (80.0-100.0); Mean Platelet Volume 8.8; Monocytes # (A) 0.5 k/uL (0-1.0); Monocytes % (A) 5 %; Neutrophils # (A) 5.6 k/uL (1.3-7.7); Neutrophils % (A) 58 %; Platelet Count 337 k/uL (150-450); RBC 4.26 m/uL (3.80-5.40); RDW 12.3 % (11.5-15.5); WBC 9.6 k/uL (3.8-10.6)
[2022-10-16 12:06] LABS: ALT 18 U/L (4-34); AST 23 U/L (14-36); African American GFR (CKD) >90 (>60 ml/min/1.73 sqM); Albumin 4.1 g/dL (3.5-5.0); Alkaline Phosphatase 88 U/L (38-126); Anion Gap 14 mmol/L; Blood Urea Nitrogen 10 mg/dL (7-17); Calcium 8.9 mg/dL (8.4-10.2); Carbon Dioxide 18 mmol/L (22-30); Chloride 106 mmol/L (98-107); Glucose 124 mg/dL (74-99); Magnesium 1.9 mg/dL (1.6-2.3); Non-African American GFR(CKD) >90 (>60 ml/min/1.73 sqM); Potassium 3.8 mmol/L (3.5-5.1); Sodium 138 mmol/L (137-145); Total Bilirubin 0.3 mg/dL (0.2-1.3); Total Protein 7.1 g/dL (6.3-8.2)
[2022-10-16 12:21] LABS: HCG,Quantitative Serum <2.4 mIU/mL
--- NOTE | 2022-10-16 12:28 | US ---
EXAMINATION TYPE: US transvaginal DATE OF EXAM: 10/16/2022 COMPARISON: US CLINICAL HISTORY: lower abdominal pain. Pt states pelvic pain TECHNIQUE: Transvaginal (TV). Transvaginal sonographic images of the pelvis were acquired. Date of LMP: Pt states started today- 10/16/22 EXAM MEASUREMENTS: Uterus: 9.2 x 4.0 x 5.4 cm Endometrial Stripe: cm Right Ovary: 4.1 x 2.7 x 4.5 cm Left Ovary: 3.6 x 2.0 x 3.3 cm 1. Uterus: Anteverted wnl 2. Endometrium: Possible bicornuate uterus- Right horn= 0.7 cm Left Horn= 0.5 cm 3. Right Ovary: Simple appearing Cyst= 2.7 x 2.8 x 3.0 cm 4. Left Ovary: wnl Spectral, color and waveform doppler imaging shows good arterial and venous flow within the ovaries ; there is no evidence for ovarian torsion. 5. Bilateral Adnexa: wnl 6. Posterior cul-de-sac: wnl IMPRESSION: 1. Right ovarian cyst. Follow-up exam following the next normal menstrual period is recommended. 2. Bicornuate uterus cannot be excluded. Consider MRI for additional workup.
--- NOTE | 2022-10-16 13:21 | CT ---
EXAMINATION TYPE: CT abdomen pelvis w con DATE OF EXAM: 10/16/2022 COMPARISON: None HISTORY: 27-year-old female Lower abdominal pain. TECHNIQUE: Contiguous axial scanning of the abdomen and pelvis following administration of 100 ml Iso joseph 300 IV contrast. Delayed images through the kidneys and coronal/sagittal reconstructions perform ed. CT DLP: 581.3 mGycm Automated exposure control for dose reduction was used. FINDINGS: Heart normal size without pericardial effusion. Lung bases clear without pleural effusion. Liver, gallbladder, adrenal glands, kidneys, and pancreas within normal limits. The spleen is borderline in size at 13.6 cm. No dilated small bowel or free air. There is mild wall thickening along the ascending colon with adjacent mild fat stranding. The cecum is low in the pelvis. Extensive crowding of structures within the right side of the pelvis. The right-sided ovarian cyst mentioned on the patient's ultrasound from today is seen measuring 3.4 cm. However, there is an adjacent somewhat tubular shaped, fluid distended structure just adjacent me asuring up to 1.1 cm, refer to coronal images 59 and 60 and sagittal image 50. Mild pelvic free fluid. 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 Left ovary is visualized. No pelv ic lymphadenopathy seen. No osseous destructive process. IMPRESSION: 1. A 3.4 CM RIGHT OVARIAN CYST SEEN ON ULTRASOUND EARLIER TODAY. 2. LOW-LYING CECUM WITHIN THE RIGHT SIDE OF THE PELVIS. FURTHER ASSESSMENT IS LIMITED DUE TO EXTENSIV E CROWDING OF STRUCTURES. THERE APPEARS TO BE A SOMEWHAT TUBULAR APPEARING FLUID-FILLED STRUCTURE IN THE RIGHT ADNEXA ADJACENT TO THE CECUM. UNCLEAR IF THIS REPRESENTS FLUID-FILLED SMALL BOWEL LOOP, DIL ATED FALLOPIAN TUBE, OR DISTENDED APPENDIX. FURTHER CLINICAL CORRELATION WILL BE NEEDED FOR ANY SUSPE CTED, EARLY ACUTE APPENDICITIS VERSUS PID. CONSIDER SHORT INTERVAL FOLLOW-UP. 3. 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
[2022-10-16] MEDS ORDERED: NALOXONE 0.4 MG/ML 1 ML VIAL IV PRN (13:59)
[2022-10-16] MEDS ORDERED: METOCLOPRAMIDE 5 MG/ML 2 ML VIAL IVP PRN (14:01)
[2022-10-16 15:01] LABS: Appearance,Urine Clear (Clear); Bilirubin,Urine Negative (Negative); Blood,Urine Large (Negative); Color,Urine Light Red; Glucose,Urine (UA) Negative (Negative); Ketones,Urine Negative (Negative); Leukocyte Esterase,Urine Small (Negative); Mucus,Urine Rare /hpf; Nitrite,Urine Negative (Negative); PH, Urine 8.5 (5.0-8.0); Protein,Urine 1+ (Negative); RBC,Urine 97 /hpf (0-5); Squamous Epithelial Cell,Urine 6 /hpf (0-4); Urobilinogen,Urine <2.0 mg/dL (<2.0); WBC,Urine 20 /hpf (0-5)
[2022-10-16 15:08] LABS: Specific Gravity,Urine >1.050 (1.001-1.035)
--- NOTE | 2022-10-16 17:11 | P.HPIM ---
History of Present Illness H&P Date: 10/16/22 Patient is a 27-year-old female with history of bulimia and IBS presenting with abdominal pain and syncope. Patient claims that a few days ago, she started to have sinus congestion, ear pain and was prescribed oral antibiotics. This morning, she had significant lower abdominal pain resembling her menstrual cramps. She also started to experience left leg numbness and right arm n umbness. During that time, patient also felt like she was going to pass out. Patient did end up losing consciousness, and had an unknown amount of downtime. Her boyfriend was in the room when this happened. She is unsure how long she was unconscious for. She is also not sure if she was confused after she regained consciousness. She has had similar symptoms in the past. She has had seen a neurologist and fruit dryer in the past. Her most recent episode where she syncopized was 2 months ago. This was while she was attending a concert. At that time, her boyfriend had noticed some seizure-like activity. However, she is unsure if her boyfriend noticed anything this time around. She denies any new changes to her medications besides the antibiotics. She denies any physician telling her about prolonged QTC to her. She claims that her menstrual periods are usually regular, every month. She does occasionally get heavy bleeding. She denies daily alcohol use. She denies any cigarette smoking, but does use vape daily. In the ED, vital signs were significant for bradycardia, respiratory signs were otherwise within normal limits. Laboratory workup significant for lactic acidos is 6.9. CT head did not show any acute abnormalities, but did show acute on chronic maxillary sinusitis. Abdomen pelvis CT showed right ovarian cyst, similar to transvaginal ultrasound, possible appendicitis. Prolonged QT on EKG, as well as sinus bradycardia. Patient given Zofran, fluids, morphine in the ED. Patient seen and examined at bedside. Pertinent positives and negatives as discussed in HPI, a complete review of systems was performed and all other systems are negative. Vital signs reviewed General: nontoxic, no distress, appears at stated age Derm: warm, dry Head: atraumatic, normocephalic, symmetric Eyes: EOMI, no lid lag, anicteric sclera, pupils equal round reactive to light ENT: Nose and ears atraumatic Neck: No thyromegaly, supple Mouth: no lip lesion, mucus membranes moist Cardiovascular: S1S2 reg, no murmur, no edema Lungs: clear to auscultation bilateral, no rhonchi, no rales, no wheeze, no accessory muscle use Abdominal: soft, nontender to palpation, no guarding, no appreciable organomegaly Ext: no gross muscle atrophy, muscle strength muscle strength 5 out of 5 in all 4 extremities, no contractures Neuro: CN II-XII grossly intact Psych: Alert, oriented, appropriate affect Assessment/Plan: Syncope and collapse Prolonged QTC Sinus bradycardia Lactic acidosis -Given symptoms, and possible postictal period, could have also had seizure -vasovagal syncope also possible secondary to significant abdominal pain -Arrhythmia also possible given prolonged QTC -Cardiology consult -Telemetry -Echo pending -IV Fluids -Neurology consult for possible seizure-like activity Acute on chronic maxillary sinusitis -Symptoms almost resolved -We'll hold off prescribing any further antibiotics Right ovarian cyst Abdominal pain - resolved IBS - Continue home medications History of bulimia Insomnia -Continue home medications The patient is admitted with an anticipated less than 2 midnight stay for evaluation of syncope. Surrogate decision-maker: Mother CODE STATUS: Full code DVT prophylaxis: Patient ambulatory Anticipated discharge date: 10/[address]: Home A total of [] minutes was spent on the care of this complex patient more than 50% of the time was spent in counseling and care coordination. Past Medical History Additional Past Medical History / Comment(s): migraines, bulemia History of Any Multi-Drug Resistant Organisms: None Reported Past Surgical History: Ear Surgery Additional Past Surgical History / Comment(s): Ganglion impar block. Past Psychological History: Anxiety, Depression Smoking Status: Current every day smoker, Vaper Past Alcohol Use History: Rare Past Drug Use History: None Reported Medications and Allergies Home Medications Medication Instructions Recorded Confirmed Type cloNIDine HCL [Catapres] 0.2 mg PO HS 11/14/15 10/16/22 History FLUoxetine HCL [PROzac] 20 mg PO HS 05/02/21 10/16/22 History Amoxicillin 500 mg PO Q8H 10/16/22 10/16/22 History Tenapanor HCl [Ibsrela] 50 mg PO DAILY 10/16/22 10/16/22 History Allergies Allergy/AdvReac Type Severity Reaction Status Date / Time azithromycin [From Zithromax] Allergy Rash/Hives Verified 10/16/22 13:43 Physical Exam Vitals: Vital Signs Temp Pulse Resp BP Pulse Ox 10/16/22 13:00 58 L 18 98/60 10/16/22 12:30 60 16 103/59 10/16/22 12:00 50 L 17 97/58 99 10/16/22 11:56 50 L 16 97/58 100 10/16/22 11:26 97.7 F 56 L 16 103/56 100 Intake and Output 10/16/22 10/16/22 10/16/22 06:59 14:59 22:59 Other: Weight 54.431 kg Results CBC & Chem 7: 10/16/22 11:31 10/16/22 11:31 Labs: Abnormal Lab Results - Last 24 Hours (Table) 10/16/22 10/16/22 10/16/22 Range/Units 11:31 11:31 11:31 Carbon Dioxide 18 L (22-30) mmol/L Glucose 124 H (74-99) mg/dL Plasma Lactic Acid Joselo 6.9 H* (0.7-2.0) mmol/L Urine pH 8.5 H (5.0-8.0) Ur Specific [place] >1.050 H (1.001-1.035) Urine Protein 1+ H (Negative) Urine Blood Large H (Negative) Ur Leukocyte Esterase Small H (Negative) Urine RBC 97 H (0-5) /hpf Urine WBC 20 H (0-5) /hpf Ur Squamous Epith Cells 6 H (0-4) /hpf Urine Mucus Rare H (None) /hpf 10/16/22 Range/Units 14:25 Carbon Dioxide (22-30) mmol/L Glucose (74-99) mg/dL Plasma Lactic Acid Joselo 2.4 H* (0.7-2.0) mmol/L Urine pH (5.0-8.0) Ur Specific [place] (1.001-1.035) Urine Protein (Negative) Urine Blood (Negative) Ur Leukocyte Esterase (Negative) Urine RBC (0-5) /hpf Urine WBC (0-5) /hpf Ur Squamous Epith Cells (0-4) /hpf Urine Mucus (None) /hpf
[2022-10-16] MEDS: SODIUM CHLORIDE 0.9% 1,000 ML IV SCH (17:15)
[2022-10-16] MEDS: FLUoxetine HCL 20 MG CAP PO SCH (21:02)
[2022-10-16] MEDS: cloNIDine HCL 0.2 MG TAB PO SCH (21:02)
[2022-10-17] MEDS: SODIUM CHLORIDE 0.9% 1,000 ML IV SCH ×2 (03:54→17:08)
--- NOTE | 2022-10-17 10:09 | P.CNNES ---
History of Present Illness Consult date: 10/17/22 Requesting physician: Austin Mcqueen Reason for Consult: possible seizure History of Present Illness: This is a 27-year-old woman with history of passing out episodes since the age of 89 years old, depression and anxiety who presented emergency department because of abdominal pain. Neurology is consulted for possible seizure. Patient stated that yesterday she initially had abdominal pain cramping in the abdomen and she noticed numbness of both hands then she felt her hands were both clenched spontaneously and she had numbness on the left foot and he was told that she passed out lasting a couple seconds by her boyfriend but she is not aware of it. She could not tell me if she had any jerk in of any extremities or that was notified to her and the is not aware of if she had any foaming around the mouth. She did not have any urinary or bowel incontinence or any tongue bite or soreness of the tongue. She stated that the after the episode the she was back to baseline immediately. She denies any headache prior to episode. She denies of any focal weakness, numbness. Patient denies of illicit drug use. Of note since the age of 89 years old patient stated that she has passing out episodes and does some of the episodes lasting 1-2 minutes with the jerking of extremities sometimes and the it takes her sometime to be back at baseline. She stated that she had one episode the in May 2022 she had urinary incontinence. Otherwise no urinary incontinence or bowel comments or tongue bite. She stated that as a child she had the seizure workup and had an EEG and was told was normal. But she continues to have these episodes. She was not placed on any antiepileptic in the past. She was invalid by a neurologist as child but does not recall their name or exactly workup besides possibly an EEG that was normal. Denies any family history of seizures. Some of the workup during this visit: CBC with differential is unremarkable Initial plasma lactic acid venous 6.9 eventually normalized Carbon dioxide is 18, glucose 124. Otherwise rest of the chemistry panel is unremarkable. CT of the head is reported as no acute intracranial abnormality seen. Correlate for acute or chronic maxillary sinusitis. I personally reviewed the CT of the head and I agree there is no acute intracranial abnormality. There is no mass, any old stroke or any bleed noted. EKG is reported as sinus bradycardia with sinus arrhythmia. Prolonged QT interval. Past Medical History Additional Past Medical History / Comment(s): migraines, bulemia History of Any Multi-Drug Resistant Organisms: None Reported Past Surgical History: Ear Surgery Additional Past Surgical History / Comment(s): Ganglion impar block. Past Psychological History: Anxiety, Depression Smoking Status: Current every day smoker, Vaper Past Alcohol Use History: Rare Past Drug Use History: None Reported Medications and Allergies Home Medications Medication Instructions Recorded Confirmed Type cloNIDine HCL [Catapres] 0.2 mg PO HS 11/14/15 10/16/22 History FLUoxetine HCL [PROzac] 20 mg PO HS 05/02/21 10/16/22 History Amoxicillin 500 mg PO Q8H 10/16/22 10/16/22 History Tenapanor HCl [Ibsrela] 50 mg PO DAILY 10/16/22 10/16/22 History Allergies Allergy/AdvReac Type Severity Reaction Status Date / Time azithromycin [From Zithromax] Allergy Rash/Hives Verified 10/16/22 13:43 Physical Examination - Vital Signs Vital Signs: Vital Signs Temp Pulse Pulse Resp BP BP BP 10/17/22 07:00 98.2 F 68 18 96/59 10/17/22 03:10 98.1 F 51 L 15 99/60 10/16/22 21:01 98.7 F 60 18 101/63 10/16/22 15:37 97.5 F L 73 18 93/55 10/16/22 15:00 98.3 F 69 18 97/59 10/16/22 13:00 58 L 18 98/60 10/16/22 12:30 60 16 103/59 10/16/22 12:00 50 L 17 97/58 10/16/22 11:56 50 L 16 97/58 10/16/22 11:26 97.7 F 56 L 16 103/56 Pulse Ox 10/17/22 07:00 98 10/17/22 03:10 98 10/16/22 21:01 98 10/16/22 15:37 99 10/16/22 15:00 99 10/16/22 13:00 10/16/22 12:30 10/16/22 12:00 99 10/16/22 11:56 100 10/16/22 11:26 100 Intake and Output 10/16/22 10/17/22 10/17/22 22:59 06:59 14:59 Other: Voiding Method Toilet # Voids 1 1 Weight 54.431 kg GENERAL: The patient is lying in bed and is not in acute distress. CHEST: The heart rate is regular rate rhythm. No murmurs to auscultation. LUNG: Clear to auscultation bilaterally no wheezing noted throughout. Not labored breathing. ABDOMEN/GI: Bowel sounds present in all 4 quadrants. No tenderness to palpation throughout. NEUROLOGICAL: Higher mental function: The patient is awake, alert, oriented to self, place and time. Patient is following commands. No aphasia and no neglect. Cranial nerves: The pupils are round, equal and reactive to light and accommodation. Visual maria are full to confrontation throughout. Extraocular movement is intact no nystagmus is noted. Facial sensation is normal to touch throughout. The facial strength is normal throughout. Hearing is normal bilaterally to hand rub. Tongue is midline and moved [id number] without any difficulty. No dysarthria is noted. Shoulder shrug is normal bilaterally. Motor: The strength is 5 over 5 throughout. Normal tone and bulk. Cerebellum: Normal finger to nose bilaterally. Sensation: Sensation is normal to touch throughout. Reflexes (right/left): 2+ throughout. Plantars are downgoing bilaterally. Results - Laboratory Findings CBC and BMP: 10/16/22 11:31 10/16/22 11:31 Abnormal Lab Findings: Abnormal Labs 10/16/22 10/16/22 10/16/22 11:31 11:31 11:31 Carbon Dioxide 18 L Glucose 124 H Plasma Lactic Acid Joselo 6.9 H* Urine pH 8.5 H Ur Specific [place] >1.050 H Urine Protein 1+ H Urine Blood Large H Ur Leukocyte Esterase Small H Urine RBC 97 H Urine WBC 20 H Ur Squamous Epith Cells 6 H Urine Mucus Rare H 10/16/22 14:25 Carbon Dioxide Glucose Plasma Lactic Acid Joselo 2.4 H* Urine pH Ur Specific [place] Urine Protein Urine Blood Ur Leukocyte Esterase Urine RBC Urine WBC Ur Squamous Epith Cells Urine Mucus Assessment and Plan Assessment: Episode of abdominal pain/cramping then bilateral hand numbness and clenching of both hands the numbness of the left foot leading up loss of consciousness: I feel likely due to seizure Prolonged QT can also lead to syncopal episode Since the age of [age] years old patient having episodes of loss of consciousness with jerking of extremities post ictal confusion and one episode of urinary incontinence seems likely suggestive of seizures Depression Anxiety Plan: I ordered a routine EEG and MRI of the brain for seizure. Patient is in agreement if the EEG at is still normal she would like to be on antiepileptic drug and I'll place her on Lamictal with a titration dose slowly because of side effects of severe skin rash. Will start on Lamictal 25mg qhs and will increase 25mg on weekly basis until 50mg 1 tab bid. I did not place her on Keppra because of her history of depression/anxiety which can aggravate her symptoms. If EEG is normal I recommend a prolonged EEG/epilepsy monitoring unit as outpat ient to capture these episodes. Placed the patient on seizure precaution seizure pads Cardiology is consulted Patient was notified that per [place] DMV because of loss of consciousness/sycopal episodes, to avoid driving until no further episodes of passing out, avoid the [place], avoid swimming unassisted and avoid heavy machinery. Recommend the patient follow up with a neurologist as an outpatient within 1-2 weeks We'll defer the rest of the medical management to primary team The plan was discussed with the patient, cardiology team and primary team Thank you for the consultation Time with Patient: Greater than 30
--- NOTE | 2022-10-17 10:56 | P.CRDCN ---
History of Present Illness History of present illness: HISTORY OF PRESENT ILLNESS: This is a 27-year-old female with a past medical history significant for depression, anxiety, irritable bowel syndrome, bulimia, and nicotine dependence (patient vapes). 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 We have been asked to see the patient in consultation for prolonged QT. Patient examined at the bedside. Patient states yesterday she woke up with extreme analyzed abdominal pain. She thought that it was stomach cramps. She states that she took some ibuprofen and then went back to bed. She states afterwards she began having numbness in her hands and felt like they were clenched and she couldn't move them. Chest reports that her left foot went numb. She states that she passed out while she was lying in bed. She believes that she lost consciousness. She states that she does not know how long she was out for. The patient reports a history of passing out that started at the age of 10. She states they never figured out the cause. She reports that she was recently on amoxicillin for a double ear infection and was having some low-grade fevers. She currently denies chest pain or pressure. She denies shortness of breath. * EKG reveals sinus mechanism with prolonged QT. Subsequent EKGs revealed resolution of prolonged QT. * Laboratory data: WBC 9.6. Hemoglobin 12.5. Platelet count 337. Sodium 138. Potassium 3.8. BUN 10. Creatinine 0.56. Lactic acid 6.9. Repeat 0.9. Magnesium 1.9. * Current home cardiac medications include Catapres 0.2 mg at night which the patient states she uses for insomnia REVIEW OF SYSTEMS: At the time of my exam: CONSTITUTIONAL: Denies fever or chills. HEENT: Denies blurred vision, vision changes, or eye pain. Denies hemoptysis CARDIOVASCULAR: Denies chest pain. Denies orthopnea. Denies PND. Denies palpitations RESPIRATORY: Denies shortness of breath. GASTROINTESTINAL: Denies abdominal pain. Denies nausea or vomiting. HEMATOLOGIC: Denies bleeding disorders. GENITOURINARY: Denies any blood in urine. SKIN: Denies pruitis. Denies rash. PHYSICAL EXAM: VITAL SIGNS: Reviewed. GENERAL: Well-developed in no acute distress. HEENT: Head is normocephalic. Pupils are equal, round. Sclerae anicteric. Mucous membranes of the mouth are moist. Neck supple. No JVD or thyromegaly LUNGS: Respirations even and unlabored. Lungs essentially clear to auscultation bilaterally. HEART: Regular rate and rhythm. S1 and S2 heard. ABDOMEN: Soft. Nondistended. Nontender. EXTREMITIES: Normal range of motion. No clubbing or cyanosis. Peripheral pulses intact. No lower extremity edema NEUROLOGIC: Awake and alert. Oriented x 3. ASSESSMENT: Abdominal pain Prolonged QT, resolved on subsequent EKG Lactic acidosis, resolved Syncope, etiology unclear Depression Anxiety Bulimia Irritable bowel syndrome PLAN: Obtain 2D echo to assess cardiac structure and function Continue telemetry monitoring Event monitor at discharge. Would consider loop recorder in the future. Recommend discontinuing Prozac as this can prolong QT. Will defer to internal medicine. Neurology following. Await recommendations, Will consult Dr. Sim, electric physiology, for evaluation Further recommendations pending patient course Nurse practitioner note has been reviewed by physician. Signing provider agrees with the documented findings, assessment, and plan of care. Past Medical History Additional Past Medical History / Comment(s): migraines, bulemia History of Any Multi-Drug Resistant Organisms: None Reported Past Surgical History: Ear Surgery Additional Past Surgical History / Comment(s): Ganglion impar block. Past Psychological History: Anxiety, Depression Smoking Status: Current every day smoker, Vaper Past Alcohol Use History: Rare Past Drug Use History: None Reported Medications and Allergies Home Medications Medication Instructions Recorded Confirmed Type cloNIDine HCL [Catapres] 0.2 mg PO HS 11/14/15 10/16/22 History FLUoxetine HCL [PROzac] 20 mg PO HS 05/02/21 10/16/22 History Amoxicillin 500 mg PO Q8H 10/16/22 10/16/22 History Tenapanor HCl [Ibsrela] 50 mg PO DAILY 10/16/22 10/16/22 History Allergies Allergy/AdvReac Type Severity Reaction Status Date / Time azithromycin [From Zithromax] Allergy Rash/Hives Verified 10/16/22 13:43 Physical Exam Vitals: Vital Signs Temp Pulse Pulse Resp BP BP BP 10/17/22 03:10 98.1 F 51 L 15 99/60 10/16/22 21:01 98.7 F 60 18 101/63 10/16/22 15:37 97.5 F L 73 18 93/55 10/16/22 15:00 98.3 F 69 18 97/59 10/16/22 13:00 58 L 18 98/60 10/16/22 12:30 60 16 103/59 10/16/22 12:00 50 L 17 97/58 10/16/22 11:56 50 L 16 97/58 10/16/22 11:26 97.7 F 56 L 16 103/56 Pulse Ox 10/17/22 03:10 98 10/16/22 21:01 98 10/16/22 15:37 99 10/16/22 15:00 99 10/16/22 13:00 10/16/22 12:30 10/16/22 12:00 99 10/16/22 11:56 100 10/16/22 11:26 100 Intake and Output 10/16/22 10/17/22 10/17/22 22:59 06:59 14:59 Other: Voiding Method Toilet # Voids 1 1 Weight 54.431 kg Results 10/16/22 11:31 10/16/22 11:31 Cardiac Enzymes 10/16/22 Range/Units 11:31 AST 23 (14-36) U/L CBC 10/16/22 Range/Units 11:31 WBC 9.6 (3.8-10.6) k/uL RBC 4.26 (3.80-5.40) m/uL Hgb 12.5 (11.4-16.0) gm/dL Hct 38.4 (34.0-46.0) % Plt Count 337 (150-450) k/uL Comprehensive Metabolic Panel 10/16/22 Range/Units 11:31 Sodium 138 (137-145) mmol/L Potassium 3.8 (3.5-5.1) mmol/L Chloride 106 (98-107) mmol/L Carbon Dioxide 18 L (22-30) mmol/L BUN 10 (7-17) mg/dL Creatinine 0.56 (0.52-1.04) mg/dL Glucose 124 H (74-99) mg/dL Calcium 8.9 (8.4-10.2) mg/dL AST 23 (14-36) U/L ALT 18 (4-34) U/L Alkaline Phosphatase 88 (38-126) U/L Total Protein 7.1 (6.3-8.2) g/dL Albumin 4.1 (3.5-5.0) g/dL Current Medications Generic Name Dose Route Start Last Admin Trade Name Jr PRN Reason Stop Dose Admin Clonidine 0.2 mg 10/16/22 21:00 10/16/22 21:02 Clonidine Hcl 0.2 Mg Tab PO 0.2 mg HS LYRIC Administration Fluoxetine HCl 20 mg 10/16/22 21:00 10/16/22 21:02 Fluoxetine Hcl 20 Mg Cap PO 20 mg HS LYRIC Administration Sodium Chloride 1,000 mls @ 75 mls/hr 10/16/22 14:00 10/17/22 03:54 Saline 0.9% IV Not Given .[id number] LYRIC Metoclopramide HCl 10 mg 10/16/22 14:01 Metoclopramide 5 Mg/Ml 2 Ml Vial IVP TID PRN Nausea Naloxone HCl 0.2 mg 10/16/22 13:59 Naloxone 0.4 Mg/Ml 1 Ml Vial IV Q2M PRN Opioid Reversal Tenapanor Hcl [ 50 mg 10/17/22 09:00 Ibsrela] 50 Mg PO Tablet DAILY LYRIC Intake and Output 10/16/22 10/17/22 10/17/22 22:59 06:59 14:59 Other: Voiding Method Toilet # Voids 1 1 Weight 54.431 kg 10/16/22 11:31 10/16/22 11:31
[2022-10-17] MEDS: TENAPANOR HCL PO SCH (11:06)
--- NOTE | 2022-10-17 15:23 | MR ---
EXAMINATION TYPE: MR brain wo/w con DATE OF EXAM: 10/17/2022 COMPARISON: CT brain 10/16/2022, MR brain 05/23/2017. HISTORY: prior on synapse, syncope with collapse TECHNIQUE: Multiplanar, multisequence images of the brain and brainstem is performed without and with IV contras t, utilizing 6ml mL intravenous Gadavist . FINDINGS: Diffusion weighted images demonstrate no evidence of a recent infarct or other diffusion ab normality. There is no extra-axial fluid collection or significant white matter signal abnormality. The ventricular system and cisternal spaces are normal in size and appearance. The brain volume is age appropriate. Midline structures demonstrate normal morphology. The craniocervical junction appears within normal limits. Post contrast images demonstrate no abnormal enhancement. The dural venous sinuses appear pa tent. The glands are intact. Mild mucosal thickening of the bilateral maxillary sinuses. IMPRESSION: 1. No evidence of acute ischemia or abnormal enhancement. 2. Mild maxillary sinus disease.
[2022-10-17] MEDS: lamoTRIgine 25 MG TAB PO SCH (15:45)
--- NOTE | 2022-10-17 16:04 | P.PN ---
Subjective Progress Note Date: 10/17/22 Hospital Course: Patient is a 27-year-old female with history of bulimia and IBS presenting with abdominal pain and syncope. Patient claims that a few days ago, she started to have sinus congestion, ear pain and was prescribed oral antibiotics. This morning, she had significant lower abdominal pain resembling her menstrual cramps. She also started to experience left leg numbness and right arm numbness. During that time, patient also felt like she was going to pass out. Patient did end up losing consciousness, and had an unknown amount of downtime. Her boyfriend was in the room when this happened. She is unsure how long she was unconscious for. She is also not sure if she was confused after she regained consciousness. She has had similar symptoms in the past. She has had seen a neurologist and life skills coordinator in the past. Her most recent episode where she syncopized was 2 months ago. This was while she was attending a concert. At that time, her boyfriend had noticed some seizure-like activity. However, she is unsure if her boyfriend noticed anything this time around. She denies any new changes to her medications besides the antibiotics. In the ED, vital signs were significant for bradycardia, respiratory signs were otherwise within normal limits. Laboratory workup significant for lactic acidosis 6.9. CT head did not show any acute abnormalities, but did show acute on chronic maxillary sinusitis. Abdomen pelvis CT showed right ovarian cyst, similar to transvaginal ultrasound, possible appendicitis. Prolonged QT on EKG, as well as sinus bradycardia. Patient given Zofran, fluids, morphine in the ED. Repeat EKG shows normal QTC. Cardiology consulted. Recommending echocardiogram, an event monitor at discharge. Neurology also consulted for con cerns of seizure-like activity. EEG pending. MRI pending. Subjective: Patient seen and examined at bedside. No acute events overnight. She denies any significant chest pain, palpitations, shortness breath, abdominal pain, nausea, vomiting, diarrhea, constipation. Denies any urinary complaints. Pertinent positives and negatives as discussed above, a complete review of systems was performed and all other systems are negative. Vitals Signs Reviewed. General: nontoxic, no distress, appears at stated age Derm: warm, dry Head: atraumatic, normocephalic, symmetric Eyes: EOMI, no lid lag, anicteric sclera Mouth: no lip lesion, mucus membranes moist Cardiovascular: S1S2 reg, no murmur Lungs: CTA bilateral, no rhonchi, no rales , no accessory muscle use Abdominal: soft, nontender to palpation, no guarding, no appreciable organomegaly Ext: no gross muscle atrophy, no edema, no contractures Neuro: CN II-XI grossly intact, no focal neuro deficits Psych: Alert, oriented, appropriate affect Assessment and Plan: Syncope and collapse Prolonged QTC - resolved Sinus bradycardia - possibly related to clonidine use Lactic acidosis - resolved Possible seizure-like activity -Cardiology consult, recommending event monitoring at discharge -Telemetry -Echo pending -IV Fluids -Neurology consult -Started on Lamictal -MRI and EEG pending Acute on chronic maxillary sinusitis -Symptoms almost resolved -Complete the course with Augmentin Right ovarian cyst Abdominal pain - resolved IBS - Continue home medications History of bulimia Insomnia -Continue home medications including Prozac given normalized QTC DVT ppx: Ambulatory Code status: Full code Anticipated discharge place: Home Anticipated discharge time: Likely tomorrow Objective - Vital Signs Vital signs: Vital Signs Temp 98 F 10/17/22 15:00 Pulse 65 10/17/22 15:00 Resp 18 10/17/22 15:00 BP 102/63 10/17/22 15:00 Pulse Ox 100 10/17/22 15:00 FiO2 Intake & Output 10/16/22 10/17/22 10/17/22 18:59 06:59 18:59 Weight 54.431 kg Other: Voiding Method Toilet # Voids 1 2 - Labs CBC & Chem 7: 10/16/22 11:31 10/16/22 11:31 Labs: Microbiology - Last 24 Hours (Table) 10/16/22 11:31 Urine Culture - Preliminary Urine,Voided
--- NOTE | 2022-10-17 20:13 | EEG ---
ELECTROENCEPHALOGRAM REPORT CLINICAL HISTORY: This is a 27-year-old woman with a recent syncopal episode at home, who has repeated episode of loss of consciousness and jerking of extremities. The video EEG is obtained to evaluate for seizure epileptiform activity. RELEVANT MEDICATION: The patient is not on any antiepileptic drug. EEG TYPE: A routine 21-channel EEG is performed with video using the 10/20 electrode placement system. DESCRIPTION: Wakefulness is only obtained. During awake state, the posterior-dominant rhythm consists of [id number] voltage of 9 to 10 hertz activity that is well modulated and well sustained. There is no physiological stage 2 sleep architecture. There is no focal slowing. Interictal and ictal is none. ACTIVATION PROCEDURE: Photic stimulation did evoke a posterior driving response at low flash frequency. There is no abnormality during the photic stimulation. Hyperventilation is not performed. CLINICAL INTERPRETATION: This is a normal routine EEG. There is no focal slowing, epileptiform discharge, or seizure on the EEG. Clinical correlation is recommended. Because of the patient's repeated episode of loss of consciousness with jerking of extremity, I recommend a prolonged EEG/epilepsy monitoring as an outpatient to capture these episodes to rule out any seizures or to capture any epileptiform discharges. MMODL / IJN: [id number] /
[2022-10-17] MEDS: FLUoxetine HCL 20 MG CAP PO SCH (20:48)
[2022-10-17] MEDS: cloNIDine HCL 0.2 MG TAB PO SCH (20:48)
[2022-10-17] MEDS: AMOXIC-POT CLAV 875-125MG 1 EACH TAB PO SCH (20:48)
--- NOTE | 2022-10-17 21:03 | P.EPCON ---
Electrophysiology Consult - EP Consult Electrophysiology Consult: This is Dr. Sim dictating a consult on this patient The patient was interviewed and examined IMPRESSION / ASSESSMENT: Recurrent episodes of loss of consciousness as well as presyncope since the age of 10 years Symptoms consistent with typical neurocardiogenic syncope with feeling hot flushed sometimes nauseous, palpitations blurred vision sweatiness All her episodes are exactly the same These episodes can occur mostly when she is standing, during many puncture or placement of an IV line, standing in a concert 4 hours and occasionally when she is sitting and in severe pain such as severe menstrual periods Occasionally these episodes have been associated with brief convulsive activity she is also consistent with vasovagal syncope with hypoperfusion of the brain Consciousness returns immediately when she lies down Many times she has attempted to lie down quickly to about the event My clinical opinion is that this is vasovagal syncope not a manifestation of epilepsy or seizures In addition she has one EKG which shows a prolonged QT interval She is on Prozac which has documented mild QT prolongation as well as some reports of torsade Sinus bradycardia with a prolonged QT interval, absolute Presence of a U wave makes the apparent QT interval appear Long The true QT interval is about 500 ms Normalization of QT interval within 12 hours on serial EKGs, despite administration of Zofran PLAN: Treatment of vasovagal syncope discussed with the patient including increasing fluids salt intake Lower extremity muscle strengthening discussed Avoid clonidine If she has recurrent episodes then Florinef may be prescribed In the future consideration for neuromodulation of parasympathetic extracardiac ganglia with radiofrequency ablation if she is refractory to medical treatment She does have very frequent episodes Avoid QT prolonging drugs including Prozac. At least minimize the dose. Prozac was prescribed for her eating disorder Stop clonidine. She takes this as a sleep aid. I will also avoid tricyclic antidepressants as sleep aids She did receive Zofran which should be avoided. Compazine should be avoided. Reglan is okay Oral magnesium, keep magnesium greater than 2.0 Tilt table testing tomorrow Consideration for advanced testing in the future as an outpatient Discontinue antiseizure medications HPI Patient presented with abdominal pain and associated syncope QT interval was found to be prolonged on twelve-lead EKG I reviewed the twelve-lead EKG and the absolute QT interval is mildly prolonged on the first EKG before she got Zofran There are U waves present but absolute QT interval is about 500 ms This is a regular phenomenon for her. When she is in severe pain she passes out She feels hot flushed sweaty sometimes nauseous has blurred vision and then passes out She tries to lie down quickly during some of these episodes but yesterday she had extremely severe abdominal pain and she passed out in the setting of severe abdominal pain She's had a syncopal spell in the past in a concert. She was standing for at least 4 hours and she felt her episode, on She felt blurred vision mild nausea heart flushed and sweaty consistent with vasovagal phenomena She's had these episodes since she was 10 years old EXAMINATION: Afebrile, pulse rate in the 50s and 60s, blood pressure 102/63 mmHg Normal heart sounds Normal breath sounds REVIEW OF LABS, ECG & MEDICAL DATA hemoglobin 12.5 Sodium 138, potassium 3.8, creatinine normal Magnesium 1.9
[2022-10-17] MEDS ORDERED: SODIUM CHLORIDE 0.9% 1,000 ML IV SCH (21:15)
[2022-10-18 08:04] VITALS: RESP 16
[2022-10-18] MEDS: AMOXIC-POT CLAV 875-125MG 1 EACH TAB PO SCH (08:18)
[2022-10-18] MEDS ORDERED: SODIUM CHLORIDE 0.9% 500 ML 500 ML IV ONE (08:40)
[2022-10-18] MEDS: TENAPANOR HCL PO SCH (10:21)
[2022-10-18] MEDS: lamoTRIgine 25 MG TAB PO SCH (10:22)
--- NOTE | 2022-10-18 11:14 | P.PN ---
Subjective Progress Note Date: 10/18/22 HISTORY OF PRESENT ILLNESS: This is a 27-year-old female with a past medical history significant for depression, anxiety, irritable bowel syndrome, bulimia, and nicotine dependence (patient vapes). 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 We have been asked to see the patient in consultation for prolonged QT. Patient examined at the bedside. Patient states yesterday she woke up with extreme analyzed abdominal pain. She thought that it was stomach cramps. She states that she took some ibuprofen and then went back to bed. She states afterwards she began having numbness in her hands and felt like they were clenched and she couldn't move them. Chest reports that her left foot went numb. She states that she passed out while she was lying in bed. She believes that she lost consciousness. She states that she does not know how long she was out for. The patient reports a history of passing out that started at the age of 10. She states they never figured out the cause. She reports that she was recently on amoxicillin for a double ear infection and was having some low-grade fevers. She currently denies chest pain or pressure. She denies shortness of breath. * EKG reveals sinus mechanism with prolonged QT. Subsequent EKGs revealed resolution of prolonged QT. * Laboratory data: WBC 9.6. Hemoglobin 12.5. Platelet count 337. Sodium 138. Potassium 3.8. BUN 10. Creatinine 0.56. Lactic acid 6.9. Repeat 0.9. Magnesium 1.9. * Current home cardiac medications include Catapres 0.2 mg at night which the patient states she uses for insomnia 10/18/2022 Patient examined this morning at the bedside. Patient denies chest pain or pressure. Denies SOB. Telemetry reveals sinus mechanism. Patient had event monitor placed yesterday. 2-D echo is currently pending. Vital signs remain stable. PHYSICAL EXAM: VITAL SIGNS: Reviewed. GENERAL: Well-developed in no acute distress. HEENT: Head is normocephalic. Pupils are equal, round. Sclerae anicteric. Mucous membranes of the mouth are moist. Neck supple. No JVD or thyromegaly LUNGS: Respirations even and unlabored. Lungs essentially clear to auscultation bilaterally. HEART: Regular rate and rhythm. S1 and S2 heard. ABDOMEN: Soft. Nondistended. Nontender. EXTREMITIES: Normal range of motion. No clubbing or cyanosis. Peripheral pulses intact. No lower extremity edema NEUROLOGIC: Awake and alert. Oriented x 3. ASSESSMENT: Abdominal pain Prolonged QT, resolved on subsequent EKG Lactic acidosis, resolved Vasovagal syncope, seizure disorder felt to be unlikely Depression Anxiety Bulimia Irritable bowel syndrome PLAN: Patient had event monitor placed yesterday 2-D echo is currently pending Patient has been evaluated by Dr. Sim. Tilt table testing today. Decrease Prozac to 10 mg at night secondary to prolonged QT on admission Further recommendations pending patient course Nurse practitioner note has been reviewed by physician. Signing provider agrees with the documented findings, assessment, and plan of care. Objective - Vital Signs Vital signs: Vital Signs Temp 98.5 F 10/18/22 08:03 Pulse 58 L 10/18/22 08:03 Resp 16 10/18/22 08:03 BP 93/57 10/18/22 08:03 Pulse Ox 98 10/18/22 08:03 FiO2 Intake & Output 10/17/22 10/18/22 10/18/22 18:59 06:59 18:59 Intake Total 120 218 Balance 120 218 Intake: IV 100 Oral 120 118 Other: Voiding Method Toilet # Voids 2 1 - Labs CBC & Chem 7: 10/16/22 11:31 10/16/22 11:31 Labs: Microbiology - Last 24 Hours (Table) 10/16/22 11:31 Urine Culture - Final Urine,Voided
--- NOTE | 2022-10-18 11:55 | P.EPPROC ---
- EP Procedure Note Electrophysiology Procedure Note: Tilt table test Twelve-lead EKG shows sinus rhythm First 12-lead EKG shows a QT interval of about 510 ms Follow-up EKG show normal QT interval Tilt table test per protocol Baseline blood pressure 136/78 mmHg, Baseline heart rate 58 beats a minute Patient was tilted upright at medical of 70 per protocol This is an immediate increase in her heart rate close to 30 beats a minute after about 8 minutes the patient became sweaty nauseous lightheaded blurred vision She had palpitations She had the exact same symptoms that she normally has She became very lethargic and weak and presyncopal When she was laid supine her blood pressure normalized 108/63 mmHg and her heart rate normalized to 70 bpm Her symptoms resolved with supine position Impression Orthostatic intolerance/postural tachycardia syndrome Secondary neurocardiogenic phenomena The patient stated that this replicated her clinical symptomatology exactly and episodes of syncope and presyncope Suggest Increase fluid and salt intake Endurance training Strength training of the lower extremities Stop clonidine Avoid nitrates Avoid tricyclic antidepressants Avoid QT prolonging medications Reduce the dose of Prozac This was discussed with the patient
--- NOTE | 2022-10-18 13:35 | P.DS ---
Providers Date of admission: 10/16/22 14:01 Expected date of discharge: 10/18/22 Attending physician: Angelo Rivero MD Consults: 10/16/22 13:59 Consult Physician Routine Consulting Provider: Hossein Cummins Consult Reason/Comments: prolonged qt Do you want consulting provider notified?: Yes 10/16/22 17:09 Consult Physician Routine Consulting Provider: Gene Malik Consult Reason/Comments: possible seizure Do you want consulting provider notified?: Yes Primary care physician: [facility] Course: Discharge Diagnosis: Syncope and collapse Prolonged QTC Sinus bradycardia Lactic acidosis Possible seizure-like activity Acute on chronic maxillary sinusitis Right ovarian cyst IBS History of bulimia Insomnia Hospital Course: 27-year-old female with history of bulimia and IBS presenting with abdominal pain and syncope. Patient claimed that a few days ago, she started to have sinus congestion, ear pain and was prescribed oral antibiotics. She had significant lower abdominal pain resembling her menstrual cramps. She also started to experience left leg numbness and right arm numbness. During that time, patient also felt like she was going to pass out. Patient did end up losing consciousness, and had an unknown amount of downtime. Her boyfriend was in the room when this happened. She is unsure how long she was unconscious for. She is also not sure if she was confused after she regained consciousness. She has had similar symptoms in the past. She has had seen a neurologist and patternator in the past. Her most recent episode where she syncopized was 2 months ago. This was while she was attending a concert. At that time, her boyfriend had noticed some seizure-like activity. However, she is unsure if her boyfriend noticed anything this time around. She denies any new changes to her medications besides the antibiotics. In the ED, vital signs were significant for bradycardia, respiratory signs were otherwise within normal limits. Laboratory workup significant for lactic acidosis 6.9. CT head did not show any acute abnormalities, but did show acute on chronic maxillary sinusitis. Abdomen pelvis CT showed right ovarian cyst, similar to transvaginal ultrasound, possible appendicitis. Prolonged QT on EKG, as well as sinus bradycardia. Patient given Zofran, fluids, morphine in the ED. lactic acid resolved with fluids. Repeat EKG shows normal QTC. Cardiology consulted. Tilt table testing showed likely postural tachycardia syndrome, orthostatic intolerance, neurocardiogenic syncope. Neurology also consulted for concerns of seizure-like activity. MRI negative. Patient to follow-up with cardiology as an outpatient. Clonidine discontinued. Prozac decreased. Patient to complete her course of antibiotics for sinusitis. Patient will likely benefit from further neurological workup if she continues to have similar episodes. Patient seen and examined at bedside. Vital signs reviewed and stable. General: nontoxic, no distress, appears at stated age Derm: warm, dry Head: atraumatic, normocephalic, symmetric Eyes: EOMI, no lid lag, anicteric sclera Mouth: no lip lesion, mucus membranes moist Cardiovascular: S1S2 reg, no murmur Lungs: CTA bilateral, no rhonchi, no rales , no accessory muscle use Abdominal: soft, nontender to palpation, no guarding, no appreciable organomegaly Ext: no gross muscle atrophy, no edema, no contractures Neuro: CN II-XI grossly intact, no focal neuro deficits Psych: Alert, oriented, appropriate affect A total of 42 minutes of time were spent preparing this complex discharge summary. Patient was discharged on 10/18/19 at 12:58. Patient Condition at Discharge: Serious Plan - Discharge Summary Discharge Rx Participant: No New Discharge Prescriptions: New Amoxic-Pot Clav 875-125Mg [Augmentin 875-125] 1 each PO Q12HR #6 tab FLUoxetine HCL [PROzac] 10 mg PO HS cap Continue Tenapanor HCl [Ibsrela] 50 mg PO DAILY Discontinued cloNIDine HCL [Catapres] 0.2 mg PO HS FLUoxetine HCL [PROzac] 20 mg PO HS Amoxicillin 500 mg PO Q8H Discharge Medication List Tenapanor HCl [Ibsrela] 50 mg PO DAILY 10/16/22 [History] Amoxic-Pot Clav 875-125Mg [Augmentin 875-125] 1 each PO Q12HR #6 tab 10/18/22 [Rx] FLUoxetine HCL [PROzac] 10 mg PO HS cap 10/18/22 [Rx] Follow up Appointment(s)/Referral(s): Devante Sim MD [STAFF PHYSICIAN] - 1 Week Evelio Horvath PAC [Primary Care Provider] - 1-2 days Patient Instructions/Handouts: Syncope (DC) Activity/Diet/Wound Care/Special Instructions: Please see your PCP as soon as possible. Please see cardiology in 1-2 weeks. You may need echocardiogram in the cardiology office. Discharge Disposition: HOME SELF-CARE
[2022-10-18 13:57] VITALS: BP 99/61; PULSE 70; TEMP 98.3
--- NOTE | 2022-10-18 19:16 | P.PN ---
Subjective Progress Note Date: 10/18/22 Upon seeing the patient in the morning today she notified me in the nurse that the cardiology team notified her not to take antiepileptic drugs since this is not a seizure and this was a vasovagal syncope. No further syncopal episode or seizure-like activities. Objective - Vital Signs Vital signs: Vital Signs Temp 98.3 F 10/18/22 13:57 Pulse 70 10/18/22 13:57 Resp 16 10/18/22 13:57 BP 99/61 10/18/22 13:57 Pulse Ox 99 10/18/22 13:57 FiO2 Intake & Output 10/17/22 10/18/22 10/18/22 18:59 06:59 18:59 Intake Total 120 218 Balance 120 218 Intake: IV 100 Oral 120 118 Other: Voiding Method Toilet # Voids 2 1 3 - Exam GENERAL: The patient is lying in bed and is not in acute distress. NEUROLOGICAL: Higher mental function: The patient is awake, alert, oriented to self, place and time. Patient is following commands. No aphasia and no neglect. Cranial nerves: The pupils are round, equal and reactive to light and accommodation. Visual maria are full to confrontation throughout. Extraocular movement is intact no nystagmus is noted. Facial sensation is normal to touch throughout. The facial strength is normal throughout. Hearing is normal bilaterally to hand rub. Tongue is midline and moved [id number] without any difficulty. No dysarthria is noted. Shoulder shrug is normal bilaterally. Motor: The strength is 5 over 5 throughout. Normal tone and bulk. Cerebellum: Normal finger to nose bilaterally. Sensation: Sensation is normal to touch throughout. Reflexes (right/left): 2+ throughout. Plantars are downgoing bilaterally. Some of the workup during this visit: CBC with differential is unremarkable Initial plasma lactic acid venous 6.9 eventually normalized Carbon dioxide is 18, glucose 124. Otherwise rest of the chemistry panel is unremarkable. CT of the head is reported as no acute intracranial abnormality seen. Correlate for acute or chronic maxillary sinusitis. I personally reviewed the CT of the head and I agree there is no acute intracranial abnormality. There is no mass, any old stroke or any bleed noted. MRI the brain with and without reported as no evidence of acute ischemia or abnormal enhancement. Mild maxillary sinus disease. Routine EEG is normal. There is no focal slowing, epileptiform discharges or seizure in the EEG. Clinical correlation is recommended. Patient had a tilt table test and it's reported that the patient had orthostatic intolerance/postural tachycardia syndrome. Secondary neurocardiogenic phenomenon. And it's reported that this replicated her clinical symptoms exactly an episode of syncope and presyncope - Labs CBC & Chem 7: 10/16/22 11:31 10/16/22 11:31 Labs: Microbiology - Last 24 Hours (Table) 10/16/22 11:31 Urine Culture - Final Urine,Voided Assessment and Plan Assessment: Syncopal episodes and appears vasovagal: Episode of abdominal pain/cramping then bilateral hand numbness and clenching of both hands the numbness of the left foot leading up loss of consciousness: Has positive tilt table and prolonged QT. Cannot definitively rule out seizure. Prolonged QT can also lead to syncopal episode. Since the age of [age] years old patient having episodes of loss of consciousness with jerking of extremities post ictal confusion and one episode of urinary incontinence. Cannot rule out seizure. Depression Anxiety Plan: I I felt some of the patient's jerking of extremity and a prolonged post ictal state according to the patient since age of 89 years old could be possible seizure which I cannot definitely rule out. I spoke with Dr. Cummins on 2022 and notified him about my plan and he had no objection with use of. It seems that he spoke with Dr. Sim and next day early in the morning cardiology team notified the patient to avoid taking antiepileptic drugs since they felt was a vasovagal syncope and no seizure. I recommend a prolonged EEG/epilepsy monitoring unit as outpatient to capture these episodes. I recommend neurological evaluation as an outpatient and we'll defer the antiepileptic use as an outpatient. Cardiology is on board. Patient was notified that per [place] DMV because of loss of consciousness/sycopal episodes, to avoid driving until no further episodes of passing out, avoid the [place], avoid swimming unassisted and avoid heavy machinery. Recommend the patient follow up with a neurologist as an outpatient within 1-2 weeks We'll defer the rest of the medical management to primary team The plan was discussed with the patient, cardiology team and primary team Time with Patient: Less than 30
[2022-10-18] MEDS ORDERED: FLUoxetine HCL 10 MG CAP PO SCH (21:00)
== END 2022-10-18 14:06 | disposition home or self-care (01) ==
LOC: EC 11:02 → 6NMEDSUR 14:01
PROVIDERS: ADMIT Family Medicine; ATTEND Family Medicine
DX: G90.A Postural orthostatic tachycardia syndrome [POTS] (principal); I45.81 Long QT syndrome; R00.1 Bradycardia, unspecified; E87.20 Acidosis, unspecified; J01.00 Acute maxillary sinusitis, unspecified; J32.0 Chronic maxillary sinusitis; N83.201 Unspecified ovarian cyst, right side; G47.00 Insomnia, unspecified; R10.9 Unspecified abdominal pain; R20.0 Anesthesia of skin; K58.9 Irritable bowel syndrome, unspecified; F50.2 Bulimia nervosa; F32.A Depression, unspecified; G43.909 Migraine, unspecified, not intractable, without status migrainosus; F41.9 Anxiety disorder, unspecified; F17.200 Nicotine dependence, unspecified, uncomplicated; Z79.899 Other long term (current) drug therapy; Z88.1 Allergy status to other antibiotic agents
CPT/HCPCS: 96361 ×2; 96374; 99285; 36415; 95816; 93005; 93270; 86900; 86901; 80053; 83605; 83735; 85025; 86850; 81001; 84702; 87086; 93975; 76830; 70450; 74177; 70553; G0378 ×3; J2405; Q9967; A9585; 93660

== ENCOUNTER 2023-11-29 13:07 | Emergency (ER) | payer OTHER ==
--- NOTE | 2023-11-29 13:14 | ED ---
Abdominal Pain HPI - General Chief Complaint: Abdominal Pain Stated Complaint: Abd pain Source: patient, RN notes reviewed, old records reviewed Mode of arrival: ambulatory Limitations: no limitations - History of Present Illness Initial Comments: This is a 28 female to the ED for co endometriosis and pain, patient has no fevers positive [place] patient has persistent abdominal pain here in the ER suprapubic abdominal pain. No travel history no sick contacts no diarrhea patient's pain started last night has been persistent although she otherwise has no new complaints - Related Data Home Medications Medication Instructions Recorded Confirmed Tenapanor HCl [Ibsrela] 50 mg PO DAILY 10/16/22 10/16/22 Previous Rx's Medication Instructions Recorded Amoxic-Pot Clav 875-125Mg 1 each PO Q12HR #6 tab 10/18/22 [Augmentin 875-125] FLUoxetine HCL [PROzac] 10 mg PO HS cap 10/18/22 Allergies Allergy/AdvReac Type Severity Reaction Status Date / Time azithromycin [From Zithromax] Allergy Rash/Hives Verified 11/29/23 13:12 Review of Systems ROS Statement: Those systems with pertinent positive or pertinent negative responses have been documented in the HPI. ROS Other: All systems not noted in ROS Statement are negative. Past Medical History Additional Past Medical History / Comment(s): migraines, bulemia History of Any Multi-Drug Resistant Organisms: None Reported Past Surgical History: Ear Surgery Additional Past Surgical History / Comment(s): Ganglion impar block. Past Psychological History: Anxiety, Depression Smoking Status: Current every day smoker, Vaper Past Alcohol Use History: Rare Past Drug Use History: None Reported General Exam Limitations: no limitations General appearance: alert, in no apparent distress Head exam: Present: atraumatic, normocephalic, normal inspection Eye exam: Present: normal appearance, PERRL, EOMI. Absent: scleral icterus, c onjunctival injection, periorbital swelling ENT exam: Present: normal exam, mucous membranes moist Neck exam: Present: normal inspection. Absent: tenderness, meningismus, lymphadenopathy Respiratory exam: Present: normal lung sounds bilaterally. Absent: respiratory distress, wheezes, rales, rhonchi, stridor Cardiovascular Exam: Present: regular rate, normal rhythm, normal heart sounds. Absent: systolic murmur, diastolic murmur, rubs, gallop, clicks GI/Abdominal exam: Present: soft, normal bowel sounds. Absent: distended, tenderness, guarding, rebound, rigid Extremities exam: Present: normal inspection, full ROM, normal capillary refill. Absent: tenderness, pedal edema, joint swelling, calf tenderness Back exam: Present: normal inspection Neurological exam: Present: alert, oriented X3, CN II-XII intact Psychiatric exam: Present: normal affect, normal mood Skin exam: Present: warm, dry, intact, normal color. Absent: rash Course Vital Signs 11/29/23 11/29/23 11/29/23 13:10 14:56 17:03 Temperature 98.2 F Pulse Rate 72 61 92 Respiratory 20 18 18 Rate Blood Pressure 109/71 103/67 106/68 O2 Sat by Pulse 100 100 100 Oximetry - Reevaluation(s) Reevaluation #1: 11/29/23 13:[address] Ward completed Medical records reviewed Reevaluation #2: Patient symptoms improved Reevaluation #3: Patient informed of results and questions answered Reevaluation #4: Was pt. sent in by a medical professional or institution (, PA, FILTER HELPER, urgent care, hospital, or residential...) When possible be specific @ -no Did you speak to anyone other than the patient for history (EMS, parent, family, police, friend...)? What history was obtained from this source @ -no Did you review nursing and triage notes (agree or disagree)? Why? @ -agree Are old charts reviewed (outside hosp., previous admission, EMS record, old EKG, old radiological studies, urgent care reports/EKG's, residential records)? Report findings @ -yes Differential Diagnosis (chest pain, altered mental status, abdominal pain women, abdominal pain men, vaginal bleeding, weakness, fever, dyspnea, syncope, headache, dizziness, GI bleed, back pain, seizure, CVA, palpatations, mental health, musculoskeletal)? @ -prior EKG interpreted by me (3pts min.). @ -no X-rays interpreted by me (1pt min.). @ -no CT interpreted by me (1pt min.). @ -no U/S interpreted by me (1pt. min.). @ -yes negative for acute disease What testing was considered but not performed or refused? (CT, X-rays, U/S, labs)? Why? @ -none What meds were considered but not given or refused? Why? @ -none Did you discuss the management of the patient with other professionals (professionals i.e. , PA, FILTER HELPER, lab, RT, psych nurse, long term care social worker, regional medical director, teacher, medical officer, case assembler)? Give summary @ -no Was smoking cessation discussed for >3mins.? @ -no Was critical care preformed (if so, how long)? @ -no Were there social determinants of health that impacted care today? How? (Homelessness, low income, unemployed, alcoholism, drug addiction, transportation, low edu. Level, literacy, decrease access to med. care, detention, rehab)? @ -none Was there de-escalation of care discussed even if they declined (Discuss DNR or withdrawal of care, Hospice)? DNR status @ -no What co-morbidities impacted this encounter? (DM, HTN, Smoking, COPD, CAD, Cancer, CVA, ARF, Chemo, Hep., AIDS, mental health diagnosis, sleep apnea, morbid obesity)? @ -none Was patient admitted / discharged? Hospital course, mention meds given and route, prescriptions, significant lab abnormalities, going to OR and other pertinent info. @ - 28 female with nonspecific abdominal pain suprapubic abdominal pain with negative urine negative labs and a normal ultrasound here in the ER, patient can be discharged home Paged Undiagnosed new problem with uncertain prognosis? @ -no Drug Therapy requiring intensive monitoring for toxicity (Heparin, Nitro, Insulin, Cardizem)? @ -no Were any procedures done? @ -no Diagnosis/symptom? @ -Abdominal pain suprapubic Acute, or Chronic, or Acute on Chronic? @ -Acute Uncomplicated (without systemic symptoms) or Complicated (systemic symptoms)? @ -Complicated Side effects of treatment? @ -no Exacerbation, Progression, or Severe Exacerbation? @ -exacerbation Poses a threat to life or bodily function? How? (Chest pain, [place], NC, pneumonia, PE, COPD, DKA, ARF, appy, cholecystitis, CVA, Diverticulitis, Homicidal, Suicidal, threat to staff... and all critical care pts) @ -no Reevaluation #5: Differential Abdominal Pain Women: Appendicitis, Cholecystitis, diverticulosis, ischemic bowel, pancreatitis, hepatitis, UTI, gastroenteritis, AAA, incarcerated hernia, bowel obstruction, constipation, inflammatory bowel, hepatitis, peptic ulcer disease, splenic infarction, perforated viscus, vulvitis, ovarian torsion, PID, kidney stone, placenta abruption, this is not meant to be an all-inclusive list Medical Decision Making - Medical Decision Making 28 female with nonspecific abdominal pain suprapubic abdominal pain with negative urine negative labs and a normal ultrasound here in the ER, patient can be discharged home - Lab Data Result diagrams: 11/29/23 15:11 11/29/23 15:11 Lab Results 11/29/23 11/29/23 11/29/23 Range/Units 15:11 15:11 15:11 WBC 11.6 H (3.8-10.6) k/uL RBC 4.30 (3.80-5.40) m/uL Hgb 12.0 (11.4-16.0) gm/dL Hct 36.9 (34.0-46.0) % MCV 85.8 (80.0-100.0) fL MCH 27.9 (25.0-35.0) pg MCHC 32.5 (31.0-37.0) g/dL RDW 14.4 (11.5-15.5) % Plt Count 239 (150-450) k/uL MPV 8.3 Neutrophils % 77 % Lymphocytes % 14 % Monocytes % 7 % Eosinophils % 1 % Basophils % 0 % Neutrophils # 9.0 H (1.3-7.7) k/uL Lymphocytes # 1.6 (1.0-4.8) k/uL Monocytes # 0.8 (0-1.0) k/uL Eosinophils # 0.1 (0-0.7) k/uL Basophils # 0.0 (0-0.2) k/uL Sodium (137-145) mmol/L Potassium (3.5-5.1) mmol/L Chloride (98-107) mmol/L Carbon Dioxide (22-30) mmol/L Anion Gap mmol/L BUN (7-17) mg/dL Creatinine (0.52-1.04) mg/dL Est GFR (CKD-EPI)AfAm (>60 ml/min/1.73 sqM) Est GFR (CKD-EPI)NonAf (>60 ml/min/1.73 sqM) Glucose (74-99) mg/dL Calcium (8.4-10.2) mg/dL Total Bilirubin (0.2-1.3) mg/dL AST (14-36) U/L ALT (4-34) U/L Alkaline Phosphatase (38-126) U/L Total Protein (6.3-8.2) g/dL Albumin (3.5-5.0) g/dL Amylase (30-110) U/L Lipase (23-300) U/L Urine Color Light Yellow Urine Appearance Clear (Clear) Urine pH 7.5 (5.0-8.0) Ur Specific [place] 1.023 (1.001-1.035) Urine Protein Negative (Negative) Urine Glucose (UA) Negative (Negative) Urine Ketones Negative (Negative) Urine Blood Large H (Negative) Urine Nitrite Negative (Negative) Urine Bilirubin Negative (Negative) Urine Urobilinogen <2.0 (<2.0) mg/dL Ur Leukocyte Esterase Moderate H (Negative) Urine RBC 1 (0-5) /hpf Urine WBC 5 (0-5) /hpf Ur Squamous Epith Cells 2 (0-4) /hpf Urine Mucus Many H (None) /hpf Urine HCG, Qual Not Detected (Not Detectd) 11/29/23 Range/Units 15:11 WBC (3.8-10.6) k/uL RBC (3.80-5.40) m/uL Hgb (11.4-16.0) gm/dL Hct (34.0-46.0) % MCV (80.0-100.0) fL MCH (25.0-35.0) pg MCHC (31.0-37.0) g/dL RDW (11.5-15.5) % Plt Count (150-450) k/uL MPV Neutrophils % % Lymphocytes % % Monocytes % % Eosinophils % % Basophils % % Neutrophils # (1.3-7.7) k/uL Lymphocytes # (1.0-4.8) k/uL Monocytes # (0-1.0) k/uL Eosinophils # (0-0.7) k/uL Basophils # (0-0.2) k/uL Sodium 140 (137-145) mmol/L Potassium 4.3 (3.5-5.1) mmol/L Chloride 111 H (98-107) mmol/L Carbon Dioxide 24 (22-30) mmol/L Anion Gap 5 mmol/L BUN 11 (7-17) mg/dL Creatinine 0.53 (0.52-1.04) mg/dL Est GFR (CKD-EPI)AfAm >90 (>60 ml/min/1.73 sqM) Est GFR (CKD-EPI)NonAf >90 (>60 ml/min/1.73 sqM) Glucose 85 (74-99) mg/dL Calcium 9.2 (8.4-10.2) mg/dL Total Bilirubin 0.5 (0.2-1.3) mg/dL AST 25 (14-36) U/L ALT 12 (4-34) U/L Alkaline Phosphatase 83 (38-126) U/L Total Protein 7.1 (6.3-8.2) g/dL Albumin 4.2 (3.5-5.0) g/dL Amylase 65 (30-110) U/L Lipase 42 (23-300) U/L Urine Color Urine Appearance (Clear) Urine pH (5.0-8.0) Ur Specific [place] (1.001-1.035) Urine Protein (Negative) Urine Glucose (UA) (Negative) Urine Ketones (Negative) Urine Blood (Negative) Urine Nitrite (Negative) Urine Bilirubin (Negative) Urine Urobilinogen (<2.0) mg/dL Ur Leukocyte Esterase (Negative) Urine RBC (0-5) /hpf Urine WBC (0-5) /hpf Ur Squamous Epith Cells (0-4) /hpf Urine Mucus (None) /hpf Urine HCG, Qual (Not Detectd) - Radiology Data Radiology results: report reviewed (Ultrasound pelvis is negative for acute disease), image reviewed Disposition Clinical Impression: Abdominal pain Disposition: HOME SELF-CARE Condition: Good Instructions (If sedation given, give patient instructions): Abdominal Pain (ED) Is patient prescribed a controlled substance at d/c from ED?: No Referrals: None,Stated [Primary Care Provider] - 1-2 days Time of Disposition: 17:00
[2023-11-29 13:21] VITALS: TEMP 98.2
[2023-11-29 15:10] VITALS: RESP 18
[2023-11-29] MEDS: SODIUM CHLORIDE 0.9% 1,000 ML IV STA ×2 (15:14)
[2023-11-29] MEDS: ONDANSETRON 4 MG/2 ML VIAL IVP STA (15:14)
[2023-11-29 15:44] LABS: ALT 12 U/L (4-34); AST 25 U/L (14-36); African American GFR (CKD) >90 (>60 ml/min/1.73 sqM); Albumin 4.2 g/dL (3.5-5.0); Alkaline Phosphatase 83 U/L (38-126); Amylase 65 U/L (30-110); Anion Gap 5 mmol/L; Blood Urea Nitrogen 11 mg/dL (7-17); Calcium 9.2 mg/dL (8.4-10.2); Carbon Dioxide 24 mmol/L (22-30); Chloride 111 mmol/L (98-107); Glucose 85 mg/dL (74-99); Lipase 42 U/L (23-300); Non-African American GFR(CKD) >90 (>60 ml/min/1.73 sqM); Potassium 4.3 mmol/L (3.5-5.1); Sodium 140 mmol/L (137-145); Total Bilirubin 0.5 mg/dL (0.2-1.3); Total Protein 7.1 g/dL (6.3-8.2)
[2023-11-29 15:46] LABS: Basophils % (A) 0 %; Eosinophils # (A) 0.1 k/uL (0-0.7); Eosinophils % (A) 1 %; HCT 36.9 % (34.0-46.0); Lymphocytes # (A) 1.6 k/uL (1.0-4.8); Lymphocytes % (A) 14 %; MCH 27.9 pg (25.0-35.0); MCHC 32.5 g/dL (31.0-37.0); MCV 85.8 fL (80.0-100.0); Mean Platelet Volume 8.3; Monocytes # (A) 0.8 k/uL (0-1.0); Monocytes % (A) 7 %; Neutrophils % (A) 77 %; Platelet Count 239 k/uL (150-450); RDW 14.4 % (11.5-15.5); WBC 11.6 k/uL (3.8-10.6)
[2023-11-29 15:58] LABS: Appearance,Urine Clear (Clear); Bilirubin,Urine Negative (Negative); Blood,Urine Large (Negative); Color,Urine Light Yellow; Glucose,Urine (UA) Negative (Negative); Ketones,Urine Negative (Negative); Leukocyte Esterase,Urine Moderate (Negative); Mucus,Urine Many /hpf; Nitrite,Urine Negative (Negative); PH, Urine 7.5 (5.0-8.0); Protein,Urine Negative (Negative); RBC,Urine 1 /hpf (0-5); Specific Gravity,Urine 1.023 (1.001-1.035); Squamous Epithelial Cell,Urine 2 /hpf (0-4); Urobilinogen,Urine <2.0 mg/dL (<2.0); WBC,Urine 5 /hpf (0-5)
--- NOTE | 2023-11-29 16:25 | US ---
EXAMINATION TYPE: US transvaginal DATE OF EXAM: 11/29/2023 COMPARISON: NONE CLINICAL INDICATION: Female, 28 years old with history of pain; Pelvic pain TECHNIQUE: Transvaginal (TV). Date of LMP: 11/29/23 EXAM MEASUREMENTS: Uterus: 7.5 x 3.6 x 5.7 cm Endometrial Stripe: cm Right Ovary: 3.5 x 1.7 x 1.7 cm Left Ovary: obscured by overlying bowel gas 1. Uterus: Anteverted heterogeneous, due to menstrual stage 2. Endometrium: possible bicornuate uterus as on prior exam, right horn = 0.6cm, left horn = 0.4cm 3. Right Ovary: follicles noted appropriate arterial and venous spectral waveforms to the right ovar y 4. Left Ovary: Obscured by overlying bowel gas Spectral, color and waveform doppler imaging shows good arterial and venous flow within the right o vary; there is no evidence for ovarian torsion. 5. Left Adnexa: wnl 6. Posterior cul-de-sac: wnl IMPRESSION: 1. No definitive acute abdominal process. There is concerns for consider correlation beta- hCG. 2. Bicornuate uterine fundal morphology suggested. 3. Endometrium within normal limits for thickness. 4. The left ovary is obscured by bowel gas. 5. The right ovary demonstrate follicular changes with color Doppler flow with spectral arterial and venous waveforms.
[2023-11-29] MEDS: KETOROLAC 15 MG/ML 1 ML VIAL IVP STA (17:17)
[2023-11-29] MEDS: IBUPROFEN 600 MG STARTER PACK 4 TAB BTL PO STA (17:17)
[2023-11-29] MEDS: ONDANSETRON 4 MG ODT STARTER PACK 2 TAB BTL PO STA (17:18)
[2023-11-29 17:25] VITALS: BP 106/68; PULSE 92
== END 2023-11-29 17:27 | disposition home or self-care (01) ==
LOC: EC 13:07
DX: R10.2 Pelvic and perineal pain (principal); F17.290 Nicotine dependence, other tobacco product, uncomplicated; Z86.59 Personal history of other mental and behavioral disorders; Z88.1 Allergy status to other antibiotic agents
CPT/HCPCS: 36415; 76830; 80053; 81001; 81025; 82150; 83690; 85025; 93976; 96361; 96374; 96375; 99285